=== PATIENT | female | born 1935 | race Caucasian/White ===

== ENCOUNTER 2016-12-12 07:25 | Outpatient (CLI) | payer MEDICARE, OTHER | END 2016-12-12 07:26 | disposition home or self-care (01) | DX: I48.0 Paroxysmal atrial fibrillation (principal); I20.9 Angina pectoris, unspecified; E78.5 Hyperlipidemia, unspecified; I10 Essential (primary) hypertension ==

== ENCOUNTER 2017-03-26 12:59 | Outpatient (CLI) | payer MEDICARE, OTHER | END 2017-03-26 13:00 | disposition home or self-care (01) | LOC: DI 12:59 | PROVIDERS: ATTEND Family Medicine | DX: I48.0 Paroxysmal atrial fibrillation (principal); R01.1 Cardiac murmur, unspecified; I35.0 Nonrheumatic aortic (valve) stenosis; I51.7 Cardiomegaly | CPT/HCPCS: 93306 ==

== ENCOUNTER 2017-07-06 07:23 | Outpatient (CLI) | payer MEDICARE, OTHER ==
[2017-07-06 13:59] LABS: BASOPHILS % (AUTO) 0.6 %; EOSINOPHILS # (AUTO) 0.2 10^3/uL (0.0-0.7); EOSINOPHILS % (AUTO) 3.8 %; HCT - HEMATOCRIT 39.8 % (37.0-47.0); HGB - HEMOGLOBIN 13.5 g/dL (12.0-16.0); LYMPHOCYTES # (AUTO) 1.3 10^3/uL (1.5-3.5); LYMPHOCYTES % (AUTO) 28.3 %; MEAN CORPUSCULAR HEMOGLOBIN 33.2 pg (27.0-31.0); MEAN CORPUSCULAR HGB CONC 33.8 g/dL (32.0-36.0); MEAN CORPUSCULAR VOLUME 98.2 fL (81.0-99.0); MEAN PLATELET VOLUME 9.5 fL (7.9-10.8); MONOCYTES # (AUTO) 0.5 10^3/uL (0.0-1.0); MONOCYTES % (AUTO) 9.9 %; NEUTROPHILS # (AUTO) 2.6 10^3/uL (1.5-6.6); NEUTROPHILS % (AUTO) 57.4 %; RED BLOOD COUNT 4.06 10^6/uL (4.20-5.40); RED CELL DISTRIBUTION WIDTH 13.5 % (12.0-15.0); UNCORRECTED WHITE BLOOD COUNT 4.6 x10^3/uL; WHITE BLOOD COUNT 4.6 x10^3/uL (4.8-10.8)
[2017-07-06 14:15] LABS: ALBUMIN/GLOBULIN RATIO 1.5 (1.0-2.2); BILIRUBIN,TOTAL 0.9 mg/dL (0.2-1.0); BUN - BLOOD UREA NITROGEN 23 mg/dL (6-20); CALCIUM 9.8 mg/dL (8.5-10.3); CARBON DIOXIDE - CO2 34 mmol/L (21-32); CHLORIDE 101 mmol/L (101-111); CHOL/HDL RATIO 3.1 (<4.4); CHOLESTEROL 229 mg/dL; CREATININE 0.9 mg/dL (0.4-1.0); GFR - MDRD 60 (>89); GLUCOSE 109 mg/dL (70-100); HDL CHOLESTEROL 73 mg/dL; LDL/HDL RATIO 1.9 (<4.4); POTASSIUM 4.1 mmol/L (3.5-5.0); SODIUM 142 mmol/L (135-145); TOTAL PROTEIN 6.7 g/dL (6.7-8.2); TRIGLYCERIDES 79 mg/dL; VLDL CHOLESTEROL 16 mg/dL
== END 2017-07-06 07:24 | disposition home or self-care (01) ==
LOC: LAB.F 07:23
PROVIDERS: ATTEND Family Medicine
DX: I48.0 Paroxysmal atrial fibrillation (principal); I10 Essential (primary) hypertension; I35.0 Nonrheumatic aortic (valve) stenosis; E78.5 Hyperlipidemia, unspecified
CPT/HCPCS: 36415; 80053; 80061; 85025

== ENCOUNTER 2018-02-16 11:15 | Outpatient (CLI) | payer MEDICARE, OTHER | END 2018-02-16 11:16 | disposition home or self-care (01) | LOC: DI 11:15 | PROVIDERS: ATTEND Family Medicine | DX: I48.91 Unspecified atrial fibrillation (principal); I35.0 Nonrheumatic aortic (valve) stenosis | CPT/HCPCS: 93306 ==

== ENCOUNTER 2018-04-10 06:43 | Emergency (ER) | END 2018-04-10 08:45 | disposition home or self-care (01) | CPT/HCPCS: 71046; 99283; A9270 ==

== ENCOUNTER 2018-04-28 15:09 | Outpatient (CLI) | payer MEDICARE, OTHER ==
--- NOTE | 2018-04-28 15:46 | XRAY Report ---
Procedure Date: 04/28/2018 Accession Number: [id number] / [id number] Procedure: XR - Calcaneus RT CPT Code: FULL RESULT: EXAM: Calcaneus RT DATE: 04/28/2018 3:20 PM CLINICAL HISTORY: PAINFUL R HEEL ACHILLES NON-RESPONSIVE TO PT COMPARISON: None. TECHNIQUE: 2 views. FINDINGS: Bones: Plantar calcaneal spurring. Joints:Normal. No subluxations. Soft Tissues: Normal. No soft tissue swelling. IMPRESSION: Plantar calcaneal spurring. No evidence of fracture. RADIA
== END 2018-04-28 15:10 | disposition home or self-care (01) ==
LOC: DI 15:09
PROVIDERS: ATTEND Podiatrist
DX: M77.31 Calcaneal spur, right foot (principal)

== ENCOUNTER 2018-06-08 07:08 | Outpatient (CLI) | payer MEDICARE, OTHER ==
[2018-06-08 12:05] LABS: BASOPHILS % (AUTO) 0.3 %; EOSINOPHILS # (AUTO) 0.1 10^3/uL (0.0-0.7); EOSINOPHILS % (AUTO) 1.9 %; HGB - HEMOGLOBIN 13.3 g/dL (12.0-16.0); LYMPHOCYTES # (AUTO) 2.9 10^3/uL (1.5-3.5); MEAN CORPUSCULAR HEMOGLOBIN 33.7 pg (27.0-31.0); MEAN CORPUSCULAR HGB CONC 33.9 g/dL (32.0-36.0); MEAN CORPUSCULAR VOLUME 99.6 fL (81.0-99.0); MEAN PLATELET VOLUME 9.4 fL (7.9-10.8); MONOCYTES # (AUTO) 0.6 10^3/uL (0.0-1.0); MONOCYTES % (AUTO) 8.3 %; NEUTROPHILS # (AUTO) 3.3 10^3/uL (1.5-6.6); NEUTROPHILS % (AUTO) 47.5 %; PLT - PLATELET COUNT 239 10^3/uL (130-450); RED BLOOD COUNT 3.95 10^6/uL (4.20-5.40); RED CELL DISTRIBUTION WIDTH 13.5 % (12.0-15.0); WHITE BLOOD COUNT 6.9 x10^3/uL (4.8-10.8)
[2018-06-08 12:21] LABS: ALBUMIN 3.9 g/dL (3.2-5.5); ALBUMIN/GLOBULIN RATIO 1.3 (1.0-2.2); ALKALINE PHOSPHATASE 62 IU/L (42-121); ALT ALANINE AMINOTRANSFERASE 31 IU/L (10-60); AST ASPARTATE AMINOTRANSFERASE 26 IU/L (10-42); BILIRUBIN,TOTAL 0.9 mg/dL (0.2-1.0); BUN - BLOOD UREA NITROGEN 21 mg/dL (6-20); CALCIUM 9.7 mg/dL (8.5-10.3); CARBON DIOXIDE - CO2 33 mmol/L (21-32); CHLORIDE 101 mmol/L (101-111); CHOL/HDL RATIO 2.6 (<4.4); CHOLESTEROL 222 mg/dL; CREATININE 0.8 mg/dL (0.4-1.0); GFR - MDRD 69 (>89); GLUCOSE 89 mg/dL (70-100); HDL CHOLESTEROL 87 mg/dL; LDL CHOLESTEROL,CALCULATED 119 mg/dL; LDL/HDL RATIO 1.4 (<4.4); SODIUM 141 mmol/L (135-145); TOTAL PROTEIN 6.8 g/dL (6.7-8.2); VLDL CHOLESTEROL 16 mg/dL
== END 2018-06-08 07:09 | disposition home or self-care (01) ==
LOC: LAB.F 07:08
PROVIDERS: ATTEND Family Medicine
DX: I48.0 Paroxysmal atrial fibrillation (principal); E78.5 Hyperlipidemia, unspecified; I10 Essential (primary) hypertension
CPT/HCPCS: 36415; 80053; 80061; 83721; 85025

== ENCOUNTER 2018-06-26 10:11 | Outpatient (CLI) | payer MEDICARE, OTHER ==
--- NOTE | 2018-06-26 16:59 | XRAY Report ---
Reason: FOOT PAIN,LEFT Procedure Date: 06/26/2018 Accession Number: [id number] / [id number] Procedure: XR - Foot 3 View LT CPT Code: FULL RESULT: EXAM: LEFT FOOT RADIOGRAPHY EXAM DATE: 06/26/2018 10:39 AM. CLINICAL HISTORY: FOOT Pain, left. No apparent injury. Pain in mid foot over first and second metatarsal area. Recent increase in walking. Possible stress fracture. COMPARISON: None. TECHNIQUE: 3 views. FINDINGS: Bones: Normal. No fractures or bone lesions. Joints: Normal. No subluxations. Soft Tissues: Normal. No soft tissue swelling. IMPRESSION: Normal foot radiography. RADIA
--- NOTE | 2018-06-26 17:42 | XRAY Report ---
Reason: CHRONIC SINUSITIS Procedure Date: 06/26/2018 Accession Number: [id number] / [id number] Procedure: XR - Sinus Complete CPT Code: FULL RESULT: EXAM: SINUS RADIOGRAPHY EXAM DATE: 06/26/2018 10:39 AM. CLINICAL HISTORY: Chronic sinusitis. COMPARISONS: None. TECHNIQUE: 3 views. FINDINGS: Bones: Normal. No fractures or bone lesions. Sinuses: Increased opacity within a portion of the right frontal sinus could represent soft tissue thickening. No other opacities or air fluid levels. Mastoid Air Cells: Clear. Other: Normal. No soft tissue swelling. IMPRESSION: 1. Possible right frontal sinus soft tissue thickening. 2. Otherwise, no mert sinus opacities or fluid levels. RADIA
--- NOTE | 2018-06-27 13:25 | XRAY Report ---
Reason: COUGH Procedure Date: 06/26/2018 Accession Number: [id number] / [id number] Procedure: XR - Chest 2 View X-Ray CPT Code: 23965 FULL RESULT: EXAM: CHEST RADIOGRAPHY EXAM DATE: 06/26/2018 10:38 AM. CLINICAL HISTORY: Cough. COMPARISON: Chest 2 view 04/10/2018. TECHNIQUE: 2 views. FINDINGS: Lungs/Pleura: No new focal opacities evident. Stable linear opacities at the left lung base likely represent scarring versus atelectasis. No pleural effusion. No pneumothorax. Normal volumes. Mediastinum: Heart and mediastinal contours are stable. Other: Anterior wedge compression fractures of multiple thoracic vertebral bodies are stable. IMPRESSION: No acute cardiopulmonary abnormality. RADIA
== END 2018-06-26 10:12 | disposition home or self-care (01) ==
LOC: DI 10:11
PROVIDERS: ATTEND Internal Medicine
DX: J32.9 Chronic sinusitis, unspecified (principal); R05 Cough; M79.672 Pain in left foot
CPT/HCPCS: 70220; 71046

== ENCOUNTER 2018-08-18 13:07 | Outpatient (CLI) | payer MEDICARE, OTHER | END 2018-08-18 13:08 | disposition critical access hospital (66) | LOC: EMS 13:07 | PROVIDERS: ATTEND Surgery | DX: R42 Dizziness and giddiness (principal); R07.89 Other chest pain | CPT/HCPCS: A0425; A0427 ==

== ENCOUNTER 2018-08-18 13:35 | Emergency (ER) | payer MEDICARE, OTHER ==
--- NOTE | 2018-08-18 13:45 | ED Physician Documentation ---
PD HPI CHEST PAIN - Stated complaint Stated Complaint: AFIB - Chief complaint Chief Complaint: Cardiac - History obtained from History obtained from: Patient - History of Present Illness Timing - onset: How many hours ago (12), Last night (about 1 am) Timing - onset during: Sleep Timing - duration: Hours Timing - details: Abrupt onset, Still present Quality: Pressure Location: Substernal Radiation: No: Jaw, Back Associated symptoms: Feeling faint / dizzy, Palpitations. No: Shortness of air, Nausea, General Weakness, Cough Similar symptoms before: Diagnosis (atrial fib episodes, last one being early summer. These have been self-limited in the past.) Recently seen: Not recently seen Review of Systems Constitutional: denies: Fever, Chills, Myalgias Nose: denies: Rhinorrhea / runny nose, Congestion Throat: denies: Sore throat Cardiac: reports: Palpitations. denies: Pedal edema, Calf pain Respiratory: denies: Dyspnea, Cough GI: denies: Nausea, Vomiting, Diarrhea : denies: Dysuria Skin: denies: Rash Neurologic: denies: Focal weakness, Numbness, Near syncope, Headache PD PAST MEDICAL HISTORY - Past Medical History Past Medical History: Yes Cardiovascular: Hypertension, High cholesterol, Atrial fibrillation, Murmur Respiratory: None Neuro: None Endocrine/Autoimmune: None GI: GERD, Ulcers : None HEENT: Chronic sinusitis Psych: None Musculoskeletal: Osteoporosis Derm: None - Past Surgical History Past Surgical History: Yes HEENT: Tonsil/Adenoidectomy - Present Medications Home Medications: Ambulatory Orders Medication Instructions Recorded Confirmed Chlorthalidone 25 mg PO DAILY 12/08/13 04/17/15 Cholecalciferol (Vitamin D3) 5,000 unit PO 12/08/13 04/17/15 [Vitamin D] Losartan [Cozaar] 50 mg PO DAILY 12/08/13 07/22/16 Metoprolol Succinate [Toprol Xl] 50 mg PO BID 12/08/13 07/22/16 Pravastatin Sodium 40 mg PO DAILY 12/08/13 07/22/16 Rivaroxaban [Xarelto] 20 mg PO DAILY 07/22/16 07/22/16 Fluticasone [Flonase] 2 sprays SOHAIL DAILY PRN #1 bottle 04/10/18 - Allergies Allergies/Adverse Reactions: Allergies Allergy/AdvReac Type Severity Reaction Status Date / Time Penicillins Allergy Unknown Unknown Verified 08/18/18 13:41 - Social History Does the pt smoke?: No Smoking Status: Former smoker Does the pt drink ETOH?: Yes Does the pt have substance abuse?: No - Immunizations Immunizations are current?: Yes - POLST Patient has POLST: No PD ED PE NORMAL - Vitals Vital signs reviewed: Yes - General General: Alert and oriented X 3, No acute distress, Well developed/nourished - HEENT HEENT: Moist mucous membranes, Pharynx benign - Neck Neck: Supple, no meningeal sign, No adenopathy - Cardiac Cardiac: No murmur. No: RRR (fast and irregular) - Respiratory Respiratory: Clear bilaterally - Abdomen Abdomen: Soft, Non tender - Back Back: No CVA TTP - Derm Derm: Normal color, Warm and dry - Extremities Extremities: No tenderness to palpate, Normal ROM s pain, No edema, No calf tenderness / cord - Neuro Neuro: Alert and oriented X 3, No motor deficit, Normal speech Results - Vitals Vitals: Vital Signs - 24 hr 08/18/18 08/18/18 08/18/18 13:37 13:44 14:40 Temperature 36.4 C L Heart Rate 110 H 107 H 64 Respiratory 15 15 16 Rate Blood Pressure 115/86 H 134/60 H O2 Saturation 96 95 08/18/18 14:54 Temperature Heart Rate 60 Respiratory 16 Rate Blood Pressure 123/66 O2 Saturation 95 Oxygen O2 Source Room air - EKG (time done) 13:09 Rate: Rate (enter#) (109) Rhythm: Atrial flutter [place]: Normal QRS: Normal Ischemia: Normal ST segments. No: ST elevation c/w ischemia, ST depression Computer interpretation: Agree with computer 14:54 Rate: Rate (enter#) (61) Rhythm: NSR [place]: Normal Intervals: Normal [place] QRS: Normal Ischemia: Normal ST segments. No: ST elevation c/w ischemia, ST depression Compare to prior EKG: Changed from prior EKG (converted to NSR) - Labs Labs: Laboratory Tests 08/18/18 08/18/18 08/18/18 13:53 13:53 13:53 WBC 7.8 RBC 4.00 L Hgb 13.3 Hct 39.5 MCV 98.8 MCH 33.2 H MCHC 33.6 RDW 13.8 Plt Count 257 MPV 8.6 Neut # (Auto) 5.1 Lymph # (Auto) 1.6 [place] # (Auto) 0.9 Eos # (Auto) 0.2 Baso # (Auto) 0.1 Absolute Nucleated RBC 0.00 Nucleated RBC % 0.0 Sodium 137 Potassium 3.6 Chloride 96 L Carbon Dioxide 29 Anion Gap 12.0 BUN 30 H Creatinine 1.1 H Estimated GFR (MDRD) 48 L Glucose 113 H Calcium 9.1 Magnesium Total Bilirubin 0.9 AST 24 ALT 29 Alkaline Phosphatase 62 Troponin I 0.06 Total Protein 6.6 L Albumin 3.6 Globulin 3.0 Albumin/Globulin Ratio 1.2 Lipase 47 08/18/18 13:53 WBC RBC Hgb Hct MCV MCH MCHC RDW Plt Count MPV Neut # (Auto) Lymph # (Auto) [place] # (Auto) Eos # (Auto) Baso # (Auto) Absolute Nucleated RBC Nucleated RBC % Sodium Potassium Chloride Carbon Dioxide Anion Gap BUN Creatinine Estimated GFR (MDRD) Glucose Calcium Magnesium 2.0 Total Bilirubin AST ALT Alkaline Phosphatase Troponin I Total Protein Albumin Globulin Albumin/Globulin Ratio Lipase - Rads (name of study) chest Radiology: Prelim report reviewed (normal), EMP read contemporaneously PD MEDICAL DECISION MAKING - ED course Complexity details: reviewed results, re-evaluated patient (she converted prior to meds, Given Metoprolol dose IV to keep slow. Did not need antiarrhythmics here. ), considered differential, d/w patient, d/w renewable energy consultant (Tianna, Cardiology - no added meds at this times. to see him in office. ) Departure - Departure Disposition: 01 Home, Self Care Clinical Impression: Paroxysmal atrial fibrillation Condition: Stable Record reviewed to determine appropriate education?: Yes Instructions: ED Afib Follow-Up: Joe Seals MD [Primary Care Provider] - Ayan Wynn MD [Provider Admit Priv/Credential] - Comments: I talked with Dr. Wynn who would have you discontinue your usual medicines right now. Make an appointment with his office and he can talk to you about the pros and cons of antiarrhythmic medicines to try to prevent recurrences. He did not think he needed to be on one urgently.
[2018-08-18 14:04] LABS: BASOPHILS # (AUTO) 0.1 10^3/uL (0.0-0.1); BASOPHILS % (AUTO) 0.7 %; EOSINOPHILS # (AUTO) 0.2 10^3/uL (0.0-0.7); EOSINOPHILS % (AUTO) 2.7 %; HGB - HEMOGLOBIN 13.3 g/dL (12.0-16.0); LYMPHOCYTES # (AUTO) 1.6 10^3/uL (1.5-3.5); LYMPHOCYTES % (AUTO) 20.7 %; MEAN CORPUSCULAR HEMOGLOBIN 33.2 pg (27.0-31.0); MEAN CORPUSCULAR HGB CONC 33.6 g/dL (32.0-36.0); MEAN CORPUSCULAR VOLUME 98.8 fL (81.0-99.0); MEAN PLATELET VOLUME 8.6 fL (7.9-10.8); MONOCYTES # (AUTO) 0.9 10^3/uL (0.0-1.0); MONOCYTES % (AUTO) 11.3 %; NEUTROPHILS # (AUTO) 5.1 10^3/uL (1.5-6.6); NEUTROPHILS % (AUTO) 64.6 %; PLT - PLATELET COUNT 257 10^3/uL (130-450); RED CELL DISTRIBUTION WIDTH 13.8 % (12.0-15.0); WHITE BLOOD COUNT 7.8 x10^3/uL (4.8-10.8)
[2018-08-18 14:17] LABS: ALBUMIN 3.6 g/dL (3.2-5.5); ALBUMIN/GLOBULIN RATIO 1.2 (1.0-2.2); BILIRUBIN,TOTAL 0.9 mg/dL (0.2-1.0); CALCIUM 9.1 mg/dL (8.5-10.3); CREATININE 1.1 mg/dL (0.4-1.0); TOTAL PROTEIN 6.6 g/dL (6.7-8.2)
[2018-08-18] MEDS ORDERED: PROCAINAMIDE 1,000 MG in SODIUM CHLORIDE 0.9% 240 ML IV STA (14:22)
[2018-08-18] MEDS ORDERED: SODIUM CHLORIDE 0.9% 1,000 ML IV ONE (14:22)
[2018-08-18] MEDS ORDERED: METOPROLOL 5 MG/5 ML VIAL IVP STA (14:25)
--- NOTE | 2018-08-18 15:00 | XRAY Report ---
Reason: chest distcomfort, a-fib Procedure Date: 08/18/2018 Accession Number: [id number] / [id number] Procedure: XR - Chest 2 View X-Ray CPT Code: 19793 FULL RESULT: EXAM: CHEST RADIOGRAPHY. EXAM DATE: 08/18/2018 02:26 PM. CLINICAL HISTORY: Chest discomfort, atrial fibrillation. COMPARISON: Chest 2 view 06/26/2018 10:38 AM. TECHNIQUE: 2 views. FINDINGS: Lungs/Pleura: No focal opacities evident. No pleural effusion. No pneumothorax. Overexpanded. Mediastinum: Stable mild cardiomegaly. No tracheal shift. Other: Multiple old moderate compression fractures throughout the moderately kyphoscoliotic thoracic spine. Old right rib fractures. IMPRESSION: 1. Chronic lung disease. 2. Mild cardiomegaly. RADIA
[2018-08-18 17:03] VITALS: BP 134/74
== END 2018-08-18 17:03 | disposition home or self-care (01) ==
LOC: EDUNIT# → ED 13:35
DX: I48.0 Paroxysmal atrial fibrillation (principal); I10 Essential (primary) hypertension; Z79.01 Long term (current) use of anticoagulants; Z87.891 Personal history of nicotine dependence
CPT/HCPCS: 36415; 71046; 80053; 83690; 83735; 84484; 85025; 93005; 96361; 96374; 99283

== ENCOUNTER 2018-09-21 14:55 | Outpatient (CLI) | payer MEDICARE, OTHER ==
--- NOTE | 2018-09-22 10:32 | CT Report ---
Reason: CHRONIC SINUSITIS, POST NASAL DRIP Procedure Date: 09/21/2018 Accession Number: [id number] / [id number] Procedure: CT - Sinuses CPT Code: FULL RESULT: EXAM: CT SINUS EXAM DATE: 09/21/2018 03:51 PM. HISTORY: CHRONIC SINUSITIS, POST NASAL DRIP. COMPARISONS: None. TECHNIQUE: Routine multi-axial CT imaging performed through the sinuses. Iodinated IV contrast: None. Reconstructions: Multiplanar reformats. In accordance with CT protocol optimization, one or more of the following dose reduction techniques were utilized for this exam: automated exposure control, adjustment of mA and/or KV based on patient size, or use of iterative reconstructive technique. FINDINGS: RIGHT Frontal: Prominent mucosal thickening. Ethmoid: Extensive opacification. Maxillary: Prior posterior superior and anterior inferior maxillary antral windows. Mild mucosal thickening. Sphenoid: Mild inferior mucosal thickening. Drainage Pathways: Frontal recess and sphenoethmoidal recess are obstructed by mucosal thickening. LEFT Frontal: Moderate mucosal thickening. Ethmoid: Extensive opacification. Maxillary: Prior posterior superior and anterior inferior maxillary antral windows. Sphenoid: Mild to moderate mucosal thickening, more pronounced anteriorly. Drainage Pathways: Frontal recess and sphenoethmoidal recess are obstructed by mucosal thickening. Nasal Cavity: Normal. No mass or significant anatomic abnormality evident. Osseous Structures: Unremarkable. Orbits: Unremarkable. Other: Left greater than right temporomandibular joint degenerative changes. IMPRESSION: Patient has had remote sinus surgery with widely patent bilateral maxillary antral windows as detailed above. The frontal and sphenoethmoidal recesses are obstructed by presumed mucosal thickening. Extensive opacification of ethmoid air cells. Significant frontal sinus mucosal thickening. RADIA
== END 2018-09-21 14:56 | disposition home or self-care (01) ==
LOC: DI 14:55
PROVIDERS: ATTEND Otolaryngology
DX: J32.8 Other chronic sinusitis (principal); R09.82 Postnasal drip
CPT/HCPCS: 70486

== ENCOUNTER 2018-11-24 10:57 | Outpatient (CLI) | payer MEDICARE, OTHER ==
[2018-11-24] MEDS ORDERED: REGADENOSON 0.4 MG/5 ML SYRINGE IVP ONE ×2 (12:13→13:54)
--- NOTE | 2018-11-24 15:47 | CARDIAC PROCEDURE NOTE ---
DATE OF SERVICE: 11/24/2018 Physician: Flavia Murray MD, [facility] INDICATION: Atrial fibrillation. CARDIAC RISK FACTORS: Hypertension, elevated cholesterol, postmenopausal status. PROCEDURE: After signing informed consent, the patient underwent a Lexiscan pharmaceutical stress test with nuclear myocardial perfusion imaging. RESTING HEART RATE: 63. PEAK HEART RATE: 83. RESTING BLOOD PRESSURE: 164/72. PEAK BLOOD PRESSURE: BP dropped to 142/78 and then had normal recovery by 3 minutes. The patient underwent Lexiscan infusion per protocol. She had flushing and mild shortness of breath, no chest pain. RESTING EKG: Normal sinus rhythm, occasional PACs, left atrial enlargement, first-degree AV block. EKG AT PEAK: No new ST segment or T-wave changes. SUMMARY 1. Abnormal resting EKG. 2. No ischemic changes by EKG criteria on this pharmaceutical stress test. 3. Nuclear images reported separately. cc: Ayan Wynn M.D. TD: 11/24/2018 15:35 [email or web address]
--- NOTE | 2018-11-24 16:51 | Nuclear Medicine Report ---
Reason: 195 LB - LEXISCAN - AFIB Procedure Date: 11/24/2018 Accession Number: [id number] / [id number] Procedure: NM - Myocardial Perfusion STR/RST CPT Code: FULL RESULT: EXAM: SINGLE-ISOTOPE PHARMACOLOGICAL STRESS TEST WITH REGADENOSON. SINGLE-ISOTOPE AND ONE-DAY REST/STRESS MYOCARDIAL PERFUSION SCANS WITH TOMOGRAPHIC IMAGING, QUANTITATIVE ANALYSIS, WALL MOTION ANALYSIS AND CALCULATION OF EJECTION FRACTION. EXAM DATE: 11/24/2018 04:16 PM. CLINICAL HISTORY: Atrial fibrillation. COMPARISON: None available. TECHNIQUE: After the intravenous administration of 10.7 mCi of Tc-99m sestamibi, a rest myocardial perfusion scan was done with tomography. Motion correction was applied when appropriate. After an appropriate delay, pharmacological stress was performed with the infusion of 0.4 mg regadenoson per protocol. According to protocol, 42.2 mCi of Tc-99m sestamibi was injected for stress myocardial perfusion scan. Motion correction was applied when appropriate. Gated tomographic images were obtained for wall motion analysis and computation of left ventricular ejection fraction. FINDINGS: On visual analysis, mildly decreased activity in the anteroseptal wall which appears slightly greater on the stress images compared to the rest images. There is mildly decreased activity in the inferolateral wall which appears similar between rest and stress. Computer analysis. Summed stress score 8 Summed rest score 4 Summed difference score 4 Wall motion analysis demonstrates no focal wall motion abnormality. The left ventricular end-diastolic volume is 64 cc. The left ventricular end-systolic volume is 3 cc. The left ventricular ejection fraction is calculated to be 95%. IMPRESSION: 1. On visual analysis, there is mildly decreased activity in the anteroseptal wall which appears slightly more severe on the stress images compared to rest images. Mildly decreased activity in the inferolateral wall appears similar between rest and stress. 2. Left ventricular ejection fraction of >65%. 3. Normal segmental and global wall motion. 4. Normal left ventricular cavity size, no change with stress. 5. Based on computer analysis, mildly abnormal study with mild ischemia. RADIA
== END 2018-11-24 10:58 | disposition home or self-care (01) ==
LOC: DI 10:57
PROVIDERS: ATTEND Internal Medicine Cardiovascular Disease
DX: I48.91 Unspecified atrial fibrillation (principal); R94.31 Abnormal electrocardiogram [ECG] [EKG]
CPT/HCPCS: 78452; 93017; A9500; J2785

== ENCOUNTER 2019-03-23 07:12 | Outpatient (CLI) | payer MEDICARE, OTHER ==
[2019-03-23 10:15] LABS: CALCIUM 9.6 mg/dL (8.5-10.3); CREATININE 0.8 mg/dL (0.4-1.0)
== END 2019-03-23 07:13 | disposition home or self-care (01) ==
LOC: LAB.F 07:12
PROVIDERS: ATTEND Internal Medicine Cardiovascular Disease
DX: I48.0 Paroxysmal atrial fibrillation (principal)
CPT/HCPCS: 36415; 80048

== ENCOUNTER 2019-08-03 12:20 | Outpatient (CLI) | payer MEDICARE, OTHER | END 2019-08-03 12:21 | disposition critical access hospital (66) | LOC: EMS 12:20 | PROVIDERS: ATTEND Surgery | DX: R09.89 Other specified symptoms and signs involving the circulatory and respiratory systems (principal) | CPT/HCPCS: A0425; A0429 ==

== ENCOUNTER 2019-08-03 12:45 | Emergency (ER) | payer MEDICARE, OTHER ==
--- NOTE | 2019-08-03 13:10 | ED Physician Documentation ---
PD HPI CHEST PAIN - Stated complaint Stated Complaint: AFIB - Chief complaint Chief Complaint: Cardiac - History obtained from History obtained from: Patient - History of Present Illness Timing - onset: Last night (83-year-old woman with paroxysmal atrial fibrillation, maintained on Xarelto and metoprolol. She felt it started up last night. Her symptoms are neck pressure anteriorly and palpitations. She denies shortness of breath or pedal edema. Last time she was in atrial fibrillation was about January. She has never needed electrical cardioversion.) Review of Systems Constitutional: reports: Fatigue. denies: Fever, Chills Cardiac: reports: Palpitations. denies: Chest pain / pressure, Calf pain Respiratory: denies: Dyspnea, Cough PD PAST MEDICAL HISTORY - Past Medical History Cardiovascular: Hypertension, High cholesterol, Atrial fibrillation, Murmur Respiratory: None Neuro: None Endocrine/Autoimmune: None GI: GERD, Ulcers : None HEENT: Chronic sinusitis Psych: None Musculoskeletal: Osteoporosis Derm: None - Past Surgical History Past Surgical History: Yes HEENT: Tonsil/Adenoidectomy - Present Medications Home Medications: Ambulatory Orders Medication Instructions Recorded Confirmed Chlorthalidone 25 mg PO DAILY 12/08/13 04/17/15 Cholecalciferol (Vitamin D3) 5,000 unit PO 12/08/13 04/17/15 [Vitamin D] Losartan [Cozaar] 50 mg PO DAILY 12/08/13 07/22/16 Metoprolol Succinate [Toprol Xl] 50 mg PO BID 12/08/13 07/22/16 Pravastatin Sodium 40 mg PO DAILY 12/08/13 07/22/16 Rivaroxaban [Xarelto] 20 mg PO DAILY 07/22/16 07/22/16 Fluticasone [Flonase] 2 sprays SOHAIL DAILY PRN #1 bottle 04/10/18 - Allergies Allergies/Adverse Reactions: Allergies Allergy/AdvReac Type Severity Reaction Status Date / Time Penicillins Allergy Unknown Unknown Verified 08/03/19 12:55 - Social History Does the pt smoke?: No Smoking Status: Former smoker Does the pt drink ETOH?: Yes Does the pt have substance abuse?: No - Immunizations Immunizations are current?: Yes - POLST Patient has POLST: No PD ED PE NORMAL - Vitals Vital signs reviewed: Yes - General General: Alert and oriented X 3, No acute distress - Neck Neck: Supple, no meningeal sign, No bony TTP - Cardiac Cardiac: Other (Irregularly irregular without murmur) - Respiratory Respiratory: No respiratory distress, Clear bilaterally - Abdomen Abdomen: Non tender - Extremities Extremities: No edema, No calf tenderness / cord - Neuro Neuro: Alert and oriented X 3, Normal speech Results - Vitals Vitals: Vital Signs - 24 hr 08/03/19 08/03/19 08/03/19 12:53 13:01 13:25 Temperature 36.6 C Heart Rate 114 H 94 104 H Respiratory 20 14 Rate Blood Pressure 106/80 106/80 99/77 O2 Saturation 90 L 94 08/03/19 08/03/19 08/03/19 13:26 13:27 13:34 Temperature Heart Rate 104 H 105 H 103 H Respiratory 16 Rate Blood Pressure 99/77 103/75 111/77 O2 Saturation 97 08/03/19 08/03/19 08/03/19 13:45 14:00 14:05 Temperature Heart Rate 102 H 106 H 102 H Respiratory 16 16 16 Rate Blood Pressure 102/57 L 112/70 98/73 O2 Saturation 97 97 96 08/03/19 08/03/19 08/03/19 14:10 14:15 14:55 Temperature Heart Rate 90 90 63 Respiratory 16 16 16 Rate Blood Pressure 121/60 116/76 118/62 O2 Saturation 96 99 97 08/03/19 08/03/19 15:00 15:18 Temperature Heart Rate 98 61 Respiratory 16 Rate Blood Pressure 127/68 120/76 O2 Saturation 97 Oxygen O2 Source Room air - EKG (time done) 1253 Rate: Rate (enter#) (125) Rhythm: Atrial fibrillation [place]: Normal QRS: Normal Ischemia: Q waves (III/F, not 2). No: ST elevation c/w ischemia, ST depression 1508 Rate: Rate (enter#) (59) Rhythm: NSR Intervals: Prolonged [place] QRS: Normal Ischemia: Non specific changes Computer interpretation: Agree with computer - Labs Labs: Laboratory Tests 08/03/19 08/03/19 08/03/19 13:17 13:17 13:17 WBC 6.0 RBC 4.08 L Hgb 13.2 Hct 41.3 MCV 101.2 H MCH 32.4 H MCHC 32.0 RDW 13.0 Plt Count 242 MPV 10.4 Neut # (Auto) 3.9 Lymph # (Auto) 1.4 L Daniels # (Auto) 0.6 Eos # (Auto) 0.1 Baso # (Auto) 0.0 Absolute Nucleated RBC 0.00 Nucleated RBC % 0.0 Sodium 141 Potassium 3.7 Chloride 101 Carbon Dioxide 30 Anion Gap 10.0 BUN 22 H Creatinine 0.9 Estimated GFR (MDRD) 60 L Glucose 112 H Calcium 9.7 Total Bilirubin 0.7 AST 26 ALT 26 Alkaline Phosphatase 63 Total Protein 6.8 Albumin 3.9 Globulin 2.9 Albumin/Globulin Ratio 1.3 Lipase 29 TSH 1.31 PD MEDICAL DECISION MAKING - ED course ED course: 83-year-old woman presents with symptomatic rapid atrial fibrillation since last night. She is anticoagulated. She was rate controlled with a dose of IV metoprolol and subsequently converted during a procainamide drip. Departure - Departure Disposition: 01 Home, Self Care Clinical Impression: Atrial fibrillation Condition: Good Record reviewed to determine appropriate education?: Yes Instructions: Atrial Fibrillation Dc Comments: Call your doctor to arrange a follow-up appointment, make the next available appointment. In the interim, return anytime if worse or if new symptoms develop.
[2019-08-03] MEDS: METOPROLOL 5 MG/5 ML VIAL IVP STA ×2 (13:26→14:00)
[2019-08-03 13:30] LABS: BASOPHILS % (AUTO) 0.7 %; EOSINOPHILS # (AUTO) 0.1 10^3/uL (0.0-0.7); EOSINOPHILS % (AUTO) 1.7 %; HGB - HEMOGLOBIN 13.2 g/dL (12.0-16.0); LYMPHOCYTES # (AUTO) 1.4 10^3/uL (1.5-3.5); LYMPHOCYTES % (AUTO) 23.8 %; MEAN CORPUSCULAR HEMOGLOBIN 32.4 pg (27.0-31.0); MEAN CORPUSCULAR VOLUME 101.2 fL (81.0-99.0); MEAN PLATELET VOLUME 10.4 fL (7.9-10.8); MONOCYTES # (AUTO) 0.6 10^3/uL (0.0-1.0); MONOCYTES % (AUTO) 9.1 %; NEUTROPHILS # (AUTO) 3.9 10^3/uL (1.5-6.6); NEUTROPHILS % (AUTO) 64.2 %; PLT - PLATELET COUNT 242 10^3/uL (130-450); RED BLOOD COUNT 4.08 10^6/uL (4.20-5.40)
[2019-08-03 13:43] LABS: ALBUMIN 3.9 g/dL (3.2-5.5); ALBUMIN/GLOBULIN RATIO 1.3 (1.0-2.2); BILIRUBIN,TOTAL 0.7 mg/dL (0.2-1.0); CALCIUM 9.7 mg/dL (8.5-10.3); CREATININE 0.9 mg/dL (0.4-1.0); TOTAL PROTEIN 6.8 g/dL (6.7-8.2)
[2019-08-03] MEDS ORDERED: SODIUM CHLORIDE 0.9% 500 ML IV ONE (13:47)
[2019-08-03] MEDS ORDERED: PROCAINAMIDE 1,000 MG in SODIUM CHLORIDE 0.9% 240 ML IV STA (14:02)
[2019-08-03 15:18] VITALS: BP 120/76
== END 2019-08-03 15:38 | disposition home or self-care (01) ==
LOC: EDUNIT# → ED 12:45
DX: I48.0 Paroxysmal atrial fibrillation (principal); Z79.01 Long term (current) use of anticoagulants; I10 Essential (primary) hypertension; Z87.891 Personal history of nicotine dependence
CPT/HCPCS: 36415; 80053; 83690; 84443; 85025; 93005; 96361; 96365; 96375; 99283; 99285; J2690

== ENCOUNTER 2019-08-26 13:37 | Outpatient (CLI) | payer MEDICARE, OTHER | END 2019-08-26 13:38 | disposition short-term general hospital (02) | LOC: EMS 13:37 | PROVIDERS: ATTEND Surgery | DX: R42 Dizziness and giddiness (principal); R09.89 Other specified symptoms and signs involving the circulatory and respiratory systems | CPT/HCPCS: A0425; A0427 ==

== ENCOUNTER 2019-12-19 08:23 | Outpatient (CLI) | payer MEDICARE, OTHER | END 2019-12-19 08:24 | disposition home or self-care (01) | LOC: RT 08:23 | PROVIDERS: ATTEND Internal Medicine Cardiovascular Disease | DX: I48.91 Unspecified atrial fibrillation (principal) | CPT/HCPCS: 93005 ==

== ENCOUNTER 2020-04-10 09:09 | Outpatient (CLI) | payer MEDICARE, OTHER | END 2020-04-10 09:10 | disposition home or self-care (01) | LOC: RT 09:09 | PROVIDERS: ATTEND Family Medicine | DX: I48.0 Paroxysmal atrial fibrillation (principal) | CPT/HCPCS: 93005 ==

== ENCOUNTER 2020-07-12 08:00 | Outpatient (CLI) | payer MEDICARE, OTHER | END 2020-07-12 08:01 | disposition home or self-care (01) | LOC: LAB 08:00 | PROVIDERS: ATTEND Internal Medicine Cardiovascular Disease | DX: I95.1 Orthostatic hypotension (principal) | CPT/HCPCS: 36415; 82533 ==

== ENCOUNTER 2020-10-25 12:52 | Emergency (ER) | payer MEDICARE, OTHER ==
[2020-10-25 13:46] LABS: BASOPHILS # (AUTO) 0.1 10^3/uL (0.0-0.1); BASOPHILS % (AUTO) 0.8 %; EOSINOPHILS # (AUTO) 0.2 10^3/uL (0.0-0.7); EOSINOPHILS % (AUTO) 3.2 %; HGB - HEMOGLOBIN 11.9 g/dL (12.0-16.0); LYMPHOCYTES # (AUTO) 1.1 10^3/uL (1.5-3.5); LYMPHOCYTES % (AUTO) 19.1 %; MEAN CORPUSCULAR HEMOGLOBIN 26.7 pg (27.0-31.0); MEAN CORPUSCULAR HGB CONC 29.8 g/dL (32.0-36.0); MEAN CORPUSCULAR VOLUME 89.9 fL (81.0-99.0); MEAN PLATELET VOLUME 10.2 fL (7.9-10.8); MONOCYTES # (AUTO) 0.6 10^3/uL (0.0-1.0); MONOCYTES % (AUTO) 10.8 %; NEUTROPHILS # (AUTO) 3.9 10^3/uL (1.5-6.6); NEUTROPHILS % (AUTO) 65.4 %; PLT - PLATELET COUNT 287 10^3/uL (130-450); RED BLOOD COUNT 4.45 10^6/uL (4.20-5.40); RED CELL DISTRIBUTION WIDTH 24.6 % (12.0-15.0); WHITE BLOOD COUNT 5.9 x10^3/uL (4.8-10.8)
[2020-10-25 13:46] LABS: BILIRUBIN,URINE NEGATIVE (NEGATIVE); GLUCOSE, URINE (UA) NEGATIVE (NEGATIVE); KETONES,URINE (UA) NEGATIVE (NEGATIVE); LEUKOCYTE ESTERASE, URINE NEGATIVE (NEGATIVE); NITRITE,URINE NEGATIVE (NEGATIVE); OCCULT BLOOD,URINE NEGATIVE (NEGATIVE); PH,URINE 7.5 PH (5.0-7.5); PROTEIN,URINE TRACE mg/dL (NEGATIVE); UROBILINOGEN,URINE 0.2 (NORMAL) E.U./dL (NORMAL)
[2020-10-25 13:49] LABS: CLARITY,URINE CLEAR (CLEAR)
--- NOTE | 2020-10-25 13:53 | ED Physician Documentation ---
History of Present Illness - Stated complaint Stated Complaint: WEAKNESS - Chief complaint Chief Complaint: General - History obtained from History obtained from: Patient - Additonal information Additional information: Patient comes emergency department for chief complaint of feeling generally weak and jittery today. Patient states that she has been struggling with anemia for the last 6 months and that she has had extensive work-up and nobody really knows why she is anemic. Patient states she has had endoscopy and colonoscopy, plus the pill camera and they have not found any bleeding internally. The patient denies any fevers or chills. No dysuria. No abdominal pain or back pain. No cough, chest pain, or shortness of breath. Patient has not been vomiting or having diarrhea. She does not feel ill in any other way. No history of thyroid disorder. No other complaints at this time. The patient states she is on medication for hypertension but has no history of coronary artery disease. She does have chronic A. fib, which is generally rate controlled. No other complaints at this time. No history of diabetes. Review of Systems Ten Systems: 10 systems reviewed and negative Constitutional: reports: Other (Generalized weakness.) Eyes: reports: Reviewed and negative Ears: reports: Reviewed and negative Nose: reports: Reviewed and negative Throat: reports: Reviewed and negative Cardiac: reports: Reviewed and negative Respiratory: reports: Reviewed and negative GI: reports: Reviewed and negative : reports: Reviewed and negative Skin: reports: Reviewed and negative Musculoskeletal: reports: Reviewed and negative Neurologic: reports: Generalized weakness Psychiatric: reports: Reviewed and negative Endocrine: reports: Reviewed and negative Immunocompromised: reports: Reviewed and negative PD PAST MEDICAL HISTORY - Past Medical History Cardiovascular: Hypertension, High cholesterol, Atrial fibrillation, Murmur Respiratory: None Neuro: None Endocrine/Autoimmune: None GI: GERD, Ulcers : None HEENT: Chronic sinusitis Psych: None Musculoskeletal: Osteoporosis Derm: None - Past Surgical History Past Surgical History: Yes HEENT: Tonsil/Adenoidectomy - Present Medications Home Medications: Ambulatory Orders Medication Instructions Recorded Confirmed Cholecalciferol (Vitamin D3) 5,000 unit PO 12/08/13 04/17/15 [Vitamin D] Losartan [Cozaar] 50 mg PO DAILY 12/08/13 10/25/20 Metoprolol Succinate [Toprol Xl] 50 mg PO DAILY 12/08/13 10/25/20 Pravastatin Sodium 40 mg PO DAILY 12/08/13 10/25/20 amLODIPine [Norvasc] 5 mg PO DAILY 10/25/20 10/25/20 - Allergies Allergies/Adverse Reactions: Allergies Allergy/AdvReac Type Severity Reaction Status Date / Time Penicillins Allergy Unknown Unknown Verified 10/25/20 12:58 flecainide Allergy Dizziness Verified 10/25/20 13:54 - Social History Does the pt smoke?: No Smoking Status: Never smoker Does the pt drink ETOH?: Yes Does the pt have substance abuse?: No - Immunizations Immunizations are current?: Yes - POLST Patient has POLST: No PD ED PE NORMAL - Vitals Vital signs reviewed: Yes - General General: Alert and oriented X 3, No acute distress - HEENT HEENT: Atraumatic, PERRL, EOMI, Moist mucous membranes - Neck Neck: Supple, no meningeal sign - Cardiac Cardiac: RRR, No murmur, Strong equal pulses - Respiratory Respiratory: No respiratory distress, Clear bilaterally - Abdomen Abdomen: Soft, Non tender, Non distended - Derm Derm: Normal color, Warm and dry, No rash - Extremities Extremities: No deformity, No calf tenderness / cord, Other (Trace lower leg pi tting edema bilaterally.) - Neuro Neuro: Alert and oriented X 3, supervisor beet end 2-12 intact, Normal speech, Other (No gross motor or sensory deficits) - Psych Psych: Normal mood, Normal affect Results - Vitals Vitals: Vital Signs - 24 hr 10/25/20 10/25/20 10/25/20 12:59 13:46 14:31 Temperature 36.5 C 36.8 C Heart Rate 80 83 67 Respiratory 16 18 18 Rate Blood Pressure 186/80 H 146/75 H 127/73 O2 Saturation 96 98 97 Oxygen O2 Source Room air - Labs Labs: Laboratory Tests 10/25/20 10/25/20 10/25/20 13:20 13:30 13:30 WBC 5.9 RBC 4.45 Hgb 11.9 L Hct 40.0 MCV 89.9 MCH 26.7 L MCHC 29.8 L RDW 24.6 H Plt Count 287 MPV 10.2 Neut # (Auto) 3.9 Lymph # (Auto) 1.1 L [place] # (Auto) 0.6 Eos # (Auto) 0.2 Baso # (Auto) 0.1 Absolute Nucleated RBC 0.00 Nucleated RBC % 0.0 Manual Slide Review Indicated Platelet Estimate NORMAL (130-450,000) Platelet Morphology NORMAL APPEARANCE RBC Morph Micro Appear 2+ ANISOCYTOSIS Sodium 143 Potassium 3.8 Chloride 101 Carbon Dioxide 27 Anion Gap 15.0 H BUN 17 Creatinine 0.8 Estimated GFR (MDRD) 68 L Glucose 113 H Calcium 10.1 Total Bilirubin 0.7 AST 42 ALT 35 Alkaline Phosphatase 68 Total Protein 7.4 Albumin 4.4 Globulin 3.0 Albumin/Globulin Ratio 1.5 Lipase 30 Urine Color YELLOW Urine Clarity CLEAR Urine pH 7.5 Ur Specific [place] 1.015 Urine Protein TRACE Urine Glucose (UA) NEGATIVE Urine Ketones NEGATIVE Urine Occult Blood NEGATIVE Urine Nitrite NEGATIVE Urine Bilirubin NEGATIVE Urine Urobilinogen 0.2 (NORMAL) Ur Leukocyte Esterase NEGATIVE Ur Microscopic Review NOT INDICATED Urine Culture Comments NOT INDICATED PD MEDICAL DECISION MAKING - ED course Complexity details: reviewed results, re-evaluated patient, considered differential, d/w patient ED course: The patient overall looks very good, and did not appear to have an acutely emergent condition. She was evaluated with labs and urinalysis. This did show a hemoglobin nearly normal at 11.9 and a normal hematocrit of 40. Her blood glucose was slightly elevated at 113. Her urinalysis was negative. I discussed with the patient that I do not find any evidence of a emergent condition today. The patient does not have any other symptoms besides this sense of being "jittery" and mildly generally weak, though generalized weakness is not appreciated whatsoever on exam. The patient is noted to ambulate and get around briskly and without difficulty. She is bright and alert. The patient at this point stable for discharge home. We have discussed home management of the symptoms and the need for follow-up. The patient has recently seen her primary care physician and should follow-up with her PCP again for further concerns. We have discussed the usual indications for return. Departure - Departure Disposition: 01 Home, Self Care Clinical Impression: Generalized weakness Condition: Stable Instructions: ED Weakness UKO Comments: Your labs, overall, look good. Your hemoglobin, one of the measures that we look at to see if you are anemic, is 11.9. The normal range is 12.0-16.0. Your hematocrit, the other measure we look at, is 40, which is within normal limits. As such, you do not have significant anemia at this time. Your glucose, or blood sugar, is 113 which is also slightly elevated. The upper end of the normal range should be 100. This does not mean that you have diabetes, but you should have a sugar rechecked with your doctor from time to time. It is not clear why you have felt weak and jittery today. It is possible that you could be fighting off one of the many viral illnesses that go around this time of year. It could also be that you need to get more rest or drink more water, or that you are just having an off day. There is no evidence of an emergent condition today. Although you have A. fib, your heart rate is normal, and your blood pressure is minimally elevated. Please call and make an appointment with your primary doctor to follow-up regarding your concerns. Discharge Date/Time: 10/25/20 14:40
[2020-10-25 14:03] LABS: ALBUMIN 4.4 g/dL (3.2-5.5); ALBUMIN/GLOBULIN RATIO 1.5 (1.0-2.2); BILIRUBIN,TOTAL 0.7 mg/dL (0.2-1.0); CALCIUM 10.1 mg/dL (8.5-10.3); CREATININE 0.8 mg/dL (0.4-1.0); TOTAL PROTEIN 7.4 g/dL (6.7-8.2)
[2020-10-25 14:11] LABS: PLATELET ESTIMATE, MANUAL NORMAL (130-450,000) (NORMAL); PLATELET MORPHOLOGY NORMAL APPEARANCE (NORMAL)
[2020-10-25 14:12] LABS: RBC MORPHOLOGY (MULTIPLE) 2+ ANISOCYTOSIS (NORMAL)
[2020-10-25 14:31] VITALS: BP 127/73
--- OUTSIDE RECORDS SUMMARY | 2020-10-31 01:12 | EXTERNAL MEDICAL SUMMARY RPT | Continuity of Care Document ---
:1935 Demographics Phone Unavailable Preferred Language Unknown Marital Status Unknown Mu-Ism Affiliation Unknown Race Unknown Ethnic Group Unknown Author Organization [facility] Address [address] [phone] Phone Care Team Providers Name Role Phone MATHEUS Unavailable Unavailable Allergies date description facility CIPROFLOXACIN [facility] STRAWB[facility]Y [facility] ADHESIVE TAPE [facility] [id number] [facility] Penicillins [facility] Results Social History date description facility [id number]
== END 2020-10-25 14:40 | disposition home or self-care (01) ==
LOC: ED 12:52
DX: R53.1 Weakness (principal); R73.9 Hyperglycemia, unspecified; I10 Essential (primary) hypertension; I48.20 Chronic atrial fibrillation, unspecified
CPT/HCPCS: 36415; 80053; 81001; 81003; 83690; 85025; 87086; 99283

== ENCOUNTER 2020-11-27 08:00 | Outpatient (CLI) | payer MEDICARE, OTHER ==
[2020-11-27 10:29] LABS: HGB - HEMOGLOBIN 12.1 g/dL (12.0-16.0); MEAN CORPUSCULAR HEMOGLOBIN 28.6 pg (27.0-31.0); MEAN CORPUSCULAR HGB CONC 29.8 g/dL (32.0-36.0); MEAN PLATELET VOLUME 10.8 fL (7.9-10.8); RED BLOOD COUNT 4.23 10^6/uL (4.20-5.40); RED CELL DISTRIBUTION WIDTH 23.9 % (12.0-15.0); WHITE BLOOD COUNT 4.9 x10^3/uL (4.8-10.8)
== END 2020-11-27 23:59 | disposition home or self-care (01) ==
LOC: LAB 08:00
PROVIDERS: ATTEND Internal Medicine Cardiovascular Disease
DX: D50.0 Iron deficiency anemia secondary to blood loss (chronic) (principal)
CPT/HCPCS: 36415; 85027

== ENCOUNTER 2021-05-26 17:11 | Emergency (ER) | payer MEDICARE, OTHER ==
--- NOTE | 2021-05-26 18:45 | ED Physician Documentation ---
History of Present Illness - Stated complaint Stated Complaint: HIGH BP - Chief complaint Chief Complaint: Cardiac - History obtained from History obtained from: Patient - History of Present Illness Timing: Today Pain level max: 0 Pain level now: 0 - Additonal information Additional information: 85-year-old female states that she noticed her blood pressure was higher than usual today. She is asymptomatic. Recently taken off amlodipine and started on Lasix. Took Lasix for the first time today. No headache. No chest pain. No shortness of breath. No abdominal pain. No vision changes. Review of Systems Ten Systems: 10 systems reviewed and negative Constitutional: denies: Fever, Chills Nose: denies: Rhinorrhea / runny nose, Congestion Throat: denies: Sore throat Cardiac: denies: Chest pain / pressure, Palpitations Respiratory: denies: Cough Skin: denies: Rash Musculoskeletal: denies: Neck pain, Back pain Neurologic: denies: Focal weakness, Numbness, Headache PD PAST MEDICAL HISTORY - Past Medical History Cardiovascular: Hypertension, High cholesterol, Atrial fibrillation, Murmur Respiratory: None Neuro: None Endocrine/Autoimmune: None GI: GERD, Ulcers : None HEENT: Chronic sinusitis Psych: None Musculoskeletal: Osteoporosis Derm: None - Past Surgical History Past Surgical History: Yes HEENT: Tonsil/Adenoidectomy - Present Medications Home Medications: Ambulatory Orders Medication Instructions Recorded Confirmed Cholecalciferol (Vitamin D3) 5,000 unit PO 12/08/13 04/17/15 [Vitamin D] Losartan [Cozaar] 50 mg PO DAILY 12/08/13 10/25/20 Metoprolol Succinate [Toprol Xl] 50 mg PO DAILY 12/08/13 10/25/20 Pravastatin Sodium 40 mg PO DAILY 12/08/13 10/25/20 - Allergies Allergies/Adverse Reactions: Allergies Allergy/AdvReac Type Severity Reaction Status Date / Time Penicillins Allergy Unknown Unknown Verified 05/26/21 17:21 flecainide Allergy Dizziness Verified 05/26/21 17:21 - Social History Does the pt smoke?: No Smoking Status: Never smoker Does the pt drink ETOH?: Yes Does the pt have substance abuse?: No - Immunizations Immunizations are current?: Yes - POLST Patient has POLST: No PD ED PE NORMAL - Vitals Vital signs reviewed: Yes - General General: Alert and oriented X 3, No acute distress - HEENT HEENT: Moist mucous membranes - Neck Neck: Supple, no meningeal sign - Cardiac Cardiac: RRR - Respiratory Respiratory: No respiratory distress, Clear bilaterally - Abdomen Abdomen: Soft, Non tender, Non distended - Derm Derm: Warm and dry - Extremities Extremities: No edema, No calf tenderness / cord - Neuro Neuro: Alert and oriented X 3 - Psych Psych: Normal mood, Normal affect Results - Vitals Vitals: Vital Signs - 24 hr 05/26/21 05/26/21 05/26/21 17:12 17:59 18:06 Temperature 36.9 C Heart Rate 66 56 L Respiratory 16 17 Rate Blood Pressure 229/88 H 202/95 H 193/95 H O2 Saturation 98 95 05/26/21 18:49 Temperature Heart Rate 61 Respiratory 17 Rate Blood Pressure 196/88 H O2 Saturation 95 Oxygen O2 Source Room air PD MEDICAL DECISION MAKING - ED course Complexity details: reviewed old records (Blood pressure was 186/80 on 10/25/2020 and 176/88 on 04/10/2018), re-evaluated patient, considered differential, d/w patient ED course: Patient is an 85-year-old female with Asymptomatic hypertension. Her blood pressure did decrease from 230 down to 180 in the emergency department. She does not want any medication or treatment here. Normal neurological exam. No focal neuro deficits. No chest pain, shortness of breath, vision changes. Asymptomatic hypertension. She will follow up with her doctor regarding her recent medication changes. Patient has had systolic blood pressures up into the 180s in the past on review of her chart. Patient counseled regarding signs and symptoms for which I believe and urgent re-evaluation would be necessary. Patient with good understanding of and agreement to plan and is comfortable going home at this time This document was made in part using voice recognition software. While efforts are made to proofread this document, sound alike and grammatical errors may occur. Departure - Departure Disposition: 01 Home, Self Care Clinical Impression: Hypertension Qualifiers: Hypertension type: unspecified Qualified Code(s): I10 - Essential (primary) hypertension Condition: Good Instructions: ED HTN Established Follow-Up: ARAMIS JARVIS MD [Primary Care Provider] - Within 1 week Comments: Please keep track of your blood pressures at home and call your doctor with the results tomorrow to see if they would like to adjust your medications. Return if you worsen, develop headaches, chest pain shortness of breath or other new symptoms. Discharge Date/Time: 05/26/21 18:50
[2021-05-26 18:50] VITALS: BP 196/88
== END 2021-05-26 18:50 | disposition home or self-care (01) ==
LOC: ED 17:11
DX: I10 Essential (primary) hypertension (principal)
CPT/HCPCS: 99281; 99284

== ENCOUNTER 2021-05-29 07:43 | Outpatient (CLI) | payer MEDICARE, OTHER | END 2021-05-29 07:44 | disposition home or self-care (01) | LOC: DI 07:43 | PROVIDERS: ATTEND Internal Medicine Cardiovascular Disease | DX: I11.9 Hypertensive heart disease without heart failure (principal) | CPT/HCPCS: 93306 ==

== ENCOUNTER 2021-07-11 10:45 | Emergency (ER) | payer MEDICARE, OTHER ==
--- NOTE | 2021-07-11 11:24 | ED Physician Documentation ---
History of Present Illness - Stated complaint Stated Complaint: AFIB - Chief complaint Chief Complaint: Cardiac - History obtained from History obtained from: Patient - Additonal information Additional information: 85-year-old woman with history of paroxysmal atrial fibrillation, last episode was about a year ago. She is not anticoagulated because of a history of blood loss anemia of unknown source despite having EGD, colonoscopy, and PillCam without causation. She has been in symptomatic A. fib for the last 5 days, feeling like her heart is skipping and flopping. There is no associated chest pain or trouble breathing. Her welding estimator is Ayan Wynn in [place]. Review of Systems Ten Systems: 10 systems reviewed and negative Constitutional: reports: Fatigue. denies: Fever, Chills Cardiac: reports: Palpitations. denies: Chest pain / pressure Respiratory: denies: Dyspnea, Cough PD PAST MEDICAL HISTORY - Past Medical History Past Medical History: Yes Cardiovascular: Hypertension, High cholesterol, Atrial fibrillation, Murmur Respiratory: None Neuro: None Endocrine/Autoimmune: None GI: GERD, Ulcers : None HEENT: Chronic sinusitis Psych: None Musculoskeletal: Osteoporosis Derm: None - Past Surgical History Past Surgical History: Yes HEENT: Tonsil/Adenoidectomy - Present Medications Home Medications: Ambulatory Orders Medication Instructions Recorded Confirmed Cholecalciferol (Vitamin D3) 5,000 unit PO 12/08/13 04/17/15 [Vitamin D] Metoprolol Succinate [Toprol Xl] 100 mg PO DAILY 12/08/13 10/25/20 Pravastatin Sodium 40 mg PO DAILY 12/08/13 10/25/20 Chlorthalidone 25 mg DAILY 07/11/21 07/11/21 - Allergies Allergies/Adverse Reactions: Allergies Allergy/AdvReac Type Severity Reaction Status Date / Time Penicillins Allergy Unknown Unknown Verified 07/11/21 11:03 flecainide Allergy Dizziness Verified 07/11/21 11:03 - Social History Does the pt smoke?: No Smoking Status: Never smoker Does the pt drink ETOH?: Yes Does the pt have substance abuse?: No - Immunizations Immunizations are current?: Yes - POLST Patient has POLST: No PD ED PE NORMAL - Vitals Vital signs reviewed: Yes - General General: Alert and oriented X 3, No acute distress - HEENT HEENT: PERRL, EOMI - Neck Neck: Supple, no meningeal sign, No bony TTP - Cardiac Cardiac: Other (Irregularly irregular without murmur) - Respiratory Respiratory: No respiratory distress, Clear bilaterally - Abdomen Abdomen: Normal bowel sounds, Soft, Non tender - Back Back: No CVA TTP, No spinal TTP - Derm Derm: Normal color, Warm and dry - Extremities Extremities: No edema, No calf tenderness / cord - Neuro Neuro: Alert and oriented X 3, Normal speech Results - Vitals Vitals: Vital Signs - 24 hr 07/11/21 07/11/21 11:01 11:12 Temperature 36.2 C L Heart Rate 122 H 97 Respiratory 19 16 Rate Blood Pressure 156/102 H 146/81 H O2 Saturation 97 99 Oxygen O2 Source Room air - EKG (time done) 1050 Rate: Rate (enter#) (99) Rhythm: Atrial fibrillation [place]: Normal QRS: Normal Ischemia: Q waves (III/F). No: ST elevation c/w ischemia, ST depression - Labs Labs: Laboratory Tests 07/11/21 07/11/21 07/11/21 11:15 11:15 11:15 WBC 6.3 RBC 4.21 Hgb 13.8 Hct 42.5 MCV 101.0 H MCH 32.8 H MCHC 32.5 RDW 13.0 Plt Count 242 MPV 10.4 Neut # (Auto) 3.9 Lymph # (Auto) 1.5 [place] # (Auto) 0.7 Eos # (Auto) 0.2 Baso # (Auto) 0.1 Absolute Nucleated RBC 0.00 Nucleated RBC % 0.0 Sodium 142 Potassium 3.5 Chloride 103 Carbon Dioxide 30 Anion Gap 9.0 BUN 25 H Creatinine 0.8 Estimated GFR (MDRD) 68 L Glucose 93 Calcium 9.8 Magnesium 1.9 TSH 1.14 PD MEDICAL DECISION MAKING - ED course ED course: 85-year-old woman with paroxysmal atrial fibrillation who presents with an exacerbation of same for 5 days. We discussed that because of the time course I cannot safely Cardiovert her Without MAURI as she is not anticoagulated and has been in A. fib for 5 days. 85-year-old woman presents with 5 days of symptomatic atrial fibrillation. She is not anticoagulated due to history of GI bleeds. She remained stable in the emergency department without RVR. I discussed her case with her welding estimator, Dr. Ayan Wynn by phone who reviewed her records. He had previously referred her for consideration for watchman procedure and recommends she follow- up with that physician again for reconsideration for watchman plus or minus MAURI with cardioversion. Patient does feel bad in her A. fib but discussed with her that there was no indication for transfer, and cardioversion would not be safe after 5 days without anticoagulation. Departure - Departure Disposition: 01 Home, Self Care Clinical Impression: Paroxysmal atrial fibrillation Condition: Good Record reviewed to determine appropriate education?: Yes Instructions: Atrial Fibrillation Dc Comments: As discussed, I discussed your case today with your welding estimator, Dr. Wynn who recommends following up with Dr. Deluca for consideration or at least reconsideration for watchman procedure. Return for new or worsening symptoms. Dr. Deluca's phone number is .
[2021-07-11 11:39] LABS: BASOPHILS # (AUTO) 0.1 10^3/uL (0.0-0.1); BASOPHILS % (AUTO) 0.8 %; EOSINOPHILS # (AUTO) 0.2 10^3/uL (0.0-0.7); EOSINOPHILS % (AUTO) 2.4 %; HCT - HEMATOCRIT 42.5 % (37.0-47.0); HGB - HEMOGLOBIN 13.8 g/dL (12.0-16.0); LYMPHOCYTES # (AUTO) 1.5 10^3/uL (1.5-3.5); LYMPHOCYTES % (AUTO) 23.5 %; MEAN CORPUSCULAR HEMOGLOBIN 32.8 pg (27.0-31.0); MEAN CORPUSCULAR HGB CONC 32.5 g/dL (32.0-36.0); MEAN PLATELET VOLUME 10.4 fL (7.9-10.8); MONOCYTES # (AUTO) 0.7 10^3/uL (0.0-1.0); MONOCYTES % (AUTO) 11.7 %; NEUTROPHILS # (AUTO) 3.9 10^3/uL (1.5-6.6); NEUTROPHILS % (AUTO) 61.1 %; PLT - PLATELET COUNT 242 10^3/uL (130-450); RED BLOOD COUNT 4.21 10^6/uL (4.20-5.40); WHITE BLOOD COUNT 6.3 x10^3/uL (4.8-10.8)
[2021-07-11 11:52] LABS: CALCIUM 9.8 mg/dL (8.5-10.3); CREATININE 0.8 mg/dL (0.4-1.0); MAGNESIUM 1.9 mg/dL (1.7-2.8); POTASSIUM 3.5 mmol/L (3.5-5.0)
[2021-07-11 16:18] VITALS: BP 158/100
== END 2021-07-11 14:18 | disposition home or self-care (01) ==
LOC: ED 10:45
DX: I48.0 Paroxysmal atrial fibrillation (principal); I10 Essential (primary) hypertension
CPT/HCPCS: 36415; 80048; 83735; 84443; 85025; 93005; 99283; 99284

== ENCOUNTER 2021-07-26 09:00 | Emergency (ER) | payer MEDICARE, OTHER ==
[2021-07-26 09:31] LABS: BASOPHILS # (AUTO) 0.1 10^3/uL (0.0-0.1); EOSINOPHILS # (AUTO) 0.2 10^3/uL (0.0-0.7); EOSINOPHILS % (AUTO) 3.6 %; HCT - HEMATOCRIT 46.6 % (37.0-47.0); HGB - HEMOGLOBIN 14.9 g/dL (12.0-16.0); LYMPHOCYTES # (AUTO) 1.4 10^3/uL (1.5-3.5); LYMPHOCYTES % (AUTO) 21.6 %; MEAN CORPUSCULAR HEMOGLOBIN 32.7 pg (27.0-31.0); MEAN CORPUSCULAR VOLUME 102.4 fL (81.0-99.0); MEAN PLATELET VOLUME 10.4 fL (7.9-10.8); MONOCYTES # (AUTO) 0.6 10^3/uL (0.0-1.0); NEUTROPHILS % (AUTO) 63.5 %; PLT - PLATELET COUNT 259 10^3/uL (130-450); RED BLOOD COUNT 4.55 10^6/uL (4.20-5.40); RED CELL DISTRIBUTION WIDTH 13.7 % (12.0-15.0); WHITE BLOOD COUNT 6.3 x10^3/uL (4.8-10.8)
--- NOTE | 2021-07-26 09:33 | ED Physician Documentation ---
PD HPI CHEST PAIN - Stated complaint Stated Complaint: CHEST PX - Chief complaint Chief Complaint: Cardiac - History obtained from History obtained from: Patient - Additional information Additional information: 85yo with 2 days of constant chest discomfort, desribed as a "bumping heart," associated with difficulty catching her breath but then denies shortness of breath. Has paroxysmal afib, but no IA/ACS/CAD. Not currently on anticoagulation b/c of hx occult gi bleeding. States that after I last saw her on July 11 she was in A. fib for another week after that. Then also had it briefly 4 days ago. Review of Systems Ten Systems: 10 systems reviewed and negative Constitutional: reports: Fatigue. denies: Fever, Chills Cardiac: reports: Palpitations. denies: Chest pain / pressure, Pedal edema, Calf pain Respiratory: denies: Hemoptysis, Wheezing PD PAST MEDICAL HISTORY - Past Medical History Cardiovascular: Hypertension, High cholesterol, Atrial fibrillation, Murmur Respiratory: None Neuro: None Endocrine/Autoimmune: None GI: GERD, Ulcers : None HEENT: Chronic sinusitis Psych: None Musculoskeletal: Osteoporosis Derm: None - Past Surgical History Past Surgical History: Yes HEENT: Tonsil/Adenoidectomy - Present Medications Home Medications: Ambulatory Orders Medication Instructions Recorded Confirmed Cholecalciferol (Vitamin D3) 5,000 unit PO 12/08/13 04/17/15 [Vitamin D] Metoprolol Succinate [Toprol Xl] 100 mg PO DAILY 12/08/13 10/25/20 Pravastatin Sodium 40 mg PO DAILY 12/08/13 10/25/20 Chlorthalidone 25 mg DAILY 07/11/21 07/11/21 - Allergies Allergies/Adverse Reactions: Allergies Allergy/AdvReac Type Severity Reaction Status Date / Time Penicillins Allergy Unknown Unknown Verified 07/26/21 09:18 flecainide Allergy Dizziness Verified 07/26/21 09:18 - Social History Does the pt smoke?: No Smoking Status: Never smoker Does the pt drink ETOH?: Yes Does the pt have substance abuse?: No - Immunizations Immunizations are current?: Yes - POLST Patient has POLST: No PD ED PE NORMAL - Vitals Vital signs reviewed: Yes - General General: Alert and oriented X 3, No acute distress - Cardiac Cardiac: No murmur, Other (irreg/irreg) - Respiratory Respiratory: No respiratory distress, Clear bilaterally - Abdomen Abdomen: Non tender - Back Back: No CVA TTP, No spinal TTP - Derm Derm: Normal color, Warm and dry - Extremities Extremities: No edema, No calf tenderness / cord - Neuro Neuro: Alert and oriented X 3, Normal speech Results - Vitals Vitals: Vital Signs - 24 hr 07/26/21 07/26/21 09:09 09:38 Temperature 37.2 C Heart Rate 116 H 105 H Respiratory 16 12 Rate Blood Pressure 144/99 H 133/86 H O2 Saturation 99 96 Oxygen O2 Source Room air - EKG (time done) 0930 Rate: Rate (enter#) (119) Rhythm: Atrial fibrillation [place]: Normal QRS: Normal Ischemia: Normal ST segments Computer interpretation: Agree with computer - Labs Labs: Laboratory Tests 07/26/21 07/26/21 07/26/21 09:22 09:22 09:22 WBC 6.3 RBC 4.55 Hgb 14.9 Hct 46.6 MCV 102.4 H MCH 32.7 H MCHC 32.0 RDW 13.7 Plt Count 259 MPV 10.4 Neut # (Auto) 4.0 Lymph # (Auto) 1.4 L [place] # (Auto) 0.6 Eos # (Auto) 0.2 Baso # (Auto) 0.1 Absolute Nucleated RBC 0.00 Nucleated RBC % 0.0 Sodium 141 Potassium 3.7 Chloride 99 L Carbon Dioxide 29 Anion Gap 13.0 BUN 22 H Creatinine 1.0 Estimated GFR (MDRD) 53 L Glucose 129 H Calcium 9.9 Total Bilirubin 1.0 AST 24 ALT 29 Alkaline Phosphatase 83 Troponin I High Sens 6.4 Total Protein 7.1 Albumin 4.2 Globulin 2.9 Albumin/Globulin Ratio 1.4 Lipase 53 H - Rads (name of study) 1v cxr Radiology: EMP read contemporaneously (NAD) PD MEDICAL DECISION MAKING - ED course ED course: 85-year-old woman presents with symptomatic atrial fibrillation. She is not anticoagulated. She is in mild RVR. She has been in atrial fibrillation more than out over the last few weeks and again discussed with her that I do not think it would be safe to consider her for chemical or electrical cardioversion without MAURI which we do not have available to us. She is now on the list to see the nurse midwife regarding a watchman procedure but does not have it formally scheduled yet. Discussed with her that I cannot cardiovert her and we can safely anticoagulate her given her history but we should go up on her beta-blockade from 50 to 100 mg of metoprolol a day and may be stopping chlorthalidone as she has had some mildly low blood pressure readings pending follow-up. She declines a prescription for metoprolol stating she has plenty at home to double it. Departure - Departure Disposition: Home, Self Care Clinical Impression: Atrial fibrillation Qualifiers: Atrial fibrillation type: paroxysmal Qualified Code(s): I48.0 - Paroxysmal atrial fibrillation Condition: Good Record reviewed to determine appropriate education?: Yes Instructions: Atrial Fibrillation Dc Comments: As discussed, since you have been in atrial fibrillation more than out over the last few weeks, even though the current episode is not greater than 48 hours, it still would not be safe to cardiovert you since you are not on a blood thinner given history of GI bleeding. At this point I think it would be dela cruz to stop your chlorthalidone and double your metoprolol to 100 mg twice a day. Keep your follow-up appointment with Dr. Deluca for consideration for watchman procedure.
--- NOTE | 2021-07-26 09:34 | XRAY Report ---
PROCEDURE: Chest 1 View X-Ray INDICATIONS: Chest Pain TECHNIQUE: One view of the chest was acquired. COMPARISON: 08/18/2018 FINDINGS: Surgical changes and devices: None. Lungs and pleura: No pleural effusions or pneumothorax. Lungs are clear. Mediastinum: Mediastinal contours appear normal. Heart size is mildly enlarged. Bones and chest wall: No suspicious bony lesions. Overlying soft tissues appear unremarkable. IMPRESSION: No acute cardiopulmonary pathology. Reviewed by: David Kuo MD on 07/26/2021 9:33 AM PDT Approved by: David Kuo MD on 07/26/2021 9:33 AM PDT Station ID: [id number]
[2021-07-26 09:43] LABS: ALBUMIN 4.2 g/dL (3.2-5.5); ALBUMIN/GLOBULIN RATIO 1.4 (1.0-2.2); CALCIUM 9.9 mg/dL (8.5-10.3); POTASSIUM 3.7 mmol/L (3.5-5.0); TOTAL PROTEIN 7.1 g/dL (6.7-8.2)
[2021-07-26] MEDS ORDERED: METOPROLOL SUCCINATE 50 MG TABLET PO STA (09:54)
[2021-07-26 10:20] VITALS: BP 111/92
== END 2021-07-26 10:29 | disposition home or self-care (01) ==
LOC: ED 09:00
DX: I48.0 Paroxysmal atrial fibrillation (principal); I10 Essential (primary) hypertension; Z87.19 Personal history of other diseases of the digestive system
CPT/HCPCS: 36415; 71045; 80053; 83690; 84484; 85025; 93005; 99284; A9270

== ENCOUNTER 2021-12-22 06:32 | Emergency (ER) | payer MEDICARE, OTHER ==
[2021-12-22] MEDS ORDERED: lidocaine 1% 20 ML MDV SUBQ ONE (07:10)
--- NOTE | 2021-12-22 07:55 | ED Physician Documentation ---
PD HPI UPPER EXT INJURY - Stated complaint Stated Complaint: R WRIST LAC - Chief complaint Chief Complaint: Laceration - History obtained from History obtained from: Patient - History of Present Illness Location: Right, Forearm Type of injury: Laceration Where injury occurred: Home Timing - onset: Yesterday Timing - duration: Days (1) Timing - details: Abrupt onset, Still present Improved by: Dressing Worsened by: Moving, Palpating Contributing factors: Anticoagulated (with plavix) Similar symptoms before: Diagnosis (laceration) Recently seen: Other (urgent care) - Additonal information Additional information: 86-year-old Abby Mccloud was seen at the urgent care yesterday for a laceration to her right forearm that she sustained while gardening yesterday. Is uncertain exactly how this happened but she went inside after she was done gardening and had noticed blood all over her forearm. She went to the urgent care and they dressed this and overnight this is continued to ooze blood. She is on Plavix. She has otherwise not ill. She is uncertain about her tetanus status. Review of Systems Constitutional: denies: Fever Respiratory: denies: Cough GI: denies: Vomiting Skin: reports: Laceration (s) Musculoskeletal: denies: Extremity pain Neurologic: denies: Generalized weakness, Focal weakness, Numbness PD PAST MEDICAL HISTORY - Past Medical History Past Medical History: Yes Cardiovascular: Hypertension, High cholesterol, Atrial fibrillation, Murmur Respiratory: None Neuro: None Endocrine/Autoimmune: None GI: GERD, Ulcers : None HEENT: Chronic sinusitis Psych: None Musculoskeletal: Osteoporosis Derm: None - Past Surgical History Past Surgical History: Yes HEENT: Tonsil/Adenoidectomy - Present Medications Home Medications: Ambulatory Orders Medication Instructions Recorded Confirmed Cholecalciferol (Vitamin D3) 5,000 unit PO 12/08/13 04/17/15 [Vitamin D] Metoprolol Succinate [Toprol Xl] 100 mg PO DAILY 12/08/13 10/25/20 Pravastatin Sodium 40 mg PO DAILY 12/08/13 10/25/20 Chlorthalidone 25 mg DAILY 07/11/21 07/11/21 - Allergies Allergies/Adverse Reactions: Allergies Allergy/AdvReac Type Severity Reaction Status Date / Time Penicillins Allergy Unknown Unknown Verified 07/26/21 09:18 flecainide Allergy Dizziness Verified 07/26/21 09:18 - Social History Does the pt smoke?: No Smoking Status: Never smoker Does the pt drink ETOH?: Yes Does the pt have substance abuse?: No - Immunizations Immunizations are current?: Yes - POLST Patient has POLST: No PD ED PE NORMAL - Vitals Vital signs reviewed: Yes (hypertensive ) - General General: Alert and oriented X 3, No acute distress, Well developed/nourished - HEENT HEENT: Atraumatic, PERRL, EOMI - Respiratory Respiratory: No respiratory distress - Derm Derm: Normal color, Warm and dry, No rash - Extremities Extremities: No deformity, No edema, Other (2cm flap laceration does not penetrate the dermis entirely. There is oozing of blood from the margin that is continuous despite pressure applied for hours. 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 2-12 intact, No motor deficit, No sensory deficit, Normal speech Eye Opening: Spontaneous Motor: Obeys Commands Verbal: Oriented GCS Score: 15 - Psych Psych: Normal mood, Normal affect Results - Vitals Vitals: Vital Signs - 24 hr 12/22/21 06:39 Temperature 36.7 C Heart Rate 86 Respiratory 16 Rate Blood Pressure 150/80 H O2 Saturation 99 Oxygen O2 Source Room air Procedures - Laceration (location) right forearm Length in cm: 2 Wound type: Curved, Flap, Superficial, Into subcut fat Neurovascular status: Sensory intact, Motor intact, Vascular intact Anesthesia: Lidocaine 1% Wound preparation: Hibiclens, Irrigated copiously NS, Wound explored, To the base Skin layer closure: Nylon, Interrupted, Size #-0 - enter number (5-0), Sutures - enter # (4) Other: Patient tolerated well, No complications, Neurovascular intact, Dressing applied, Tetanus UTD PD MEDICAL DECISION MAKING - ED course Complexity details: reviewed old records, reviewed results, re-evaluated patient, considered differential, d/w patient ED course: 86-year-old female with a superficial laceration to the right forearm has had continuous oozing from the margin of this wound overnight. Here in the emergency department wound is cleansed explored sutured and dressed. The patient is up-to-date on her tetanus. Departure - Departure Disposition: 01 Home, Self Care Clinical Impression: Forearm laceration Qualifiers: Encounter type: initial encounter Laterality: right Qualified Code(s): S51.811A - Laceration without foreign body of right forearm, initial encounter Condition: Stable Instructions: ED Laceration Ext Sutr Stap Tape Follow-Up: ARAMIS JARVIS MD [Primary Care Provider] - Comments: Sutures should be removed in 7 to 10 days.
[2021-12-22 08:14] VITALS: BP 126/69
== END 2021-12-22 08:16 | disposition home or self-care (01) ==
LOC: ED 06:32
DX: S51.811A Laceration without foreign body of right forearm, initial encounter (principal); W45.8XXA Other foreign body or object entering through skin, initial encounter; Y93.H2 Activity, gardening and landscaping; Z79.01 Long term (current) use of anticoagulants; I48.91 Unspecified atrial fibrillation; I10 Essential (primary) hypertension
CPT/HCPCS: 12001; 99281

== ENCOUNTER 2022-05-17 18:42 | Outpatient (CLI) | payer MEDICARE, OTHER | END 2022-05-17 18:43 | disposition critical access hospital (66) | LOC: EMS 18:42 | DX: R53.1 Weakness (principal); R42 Dizziness and giddiness | CPT/HCPCS: A0425; A0427 ==

== ENCOUNTER 2022-05-17 19:07 | Emergency (ER) | payer MEDICARE, OTHER ==
--- NOTE | 2022-05-17 19:11 | ED Physician Documentation ---
History of Present Illness - Stated complaint Stated Complaint: AFIB - Additonal information Additional information: Patient is 86-year-old female presenting to the emergency department with lightheadedness and A. fib. Longstanding history of chronic atrial fibrillation. Follows with Dr.Peter Wynn, Cardiology at [facility]. Underwent cardioversion 04/27. Reported that she felt reasonably well until approximately 4-5 days ago when she went back into A. fib. Since that time has had dizziness similar to episode she has had previous. Denies any falls or loss of consciousness. Denies any chest pain or shortness of breath. Currently is on Plavix but does not take other anticoagulation secondary to gastrointestinal bleed. Has not yet spoken to her lecturer in marketing concerning her symptoms. Review of Systems Ten Systems: 10 systems reviewed and negative PD PAST MEDICAL HISTORY - Past Medical History Cardiovascular: Hypertension, High cholesterol, Atrial fibrillation, Murmur Respiratory: None Neuro: None Endocrine/Autoimmune: None GI: GERD, Ulcers : None HEENT: Chronic sinusitis Psych: None Musculoskeletal: Osteoporosis Derm: None - Past Surgical History Past Surgical History: Yes HEENT: Tonsil/Adenoidectomy - Present Medications Home Medications: Ambulatory Orders Medication Instructions Recorded Confirmed Cholecalciferol (Vitamin D3) 5,000 unit PO 12/08/13 04/17/15 [Vitamin D] Metoprolol Succinate [Toprol Xl] 100 mg PO DAILY 12/08/13 10/25/20 Pravastatin Sodium 40 mg PO DAILY 12/08/13 10/25/20 Chlorthalidone 25 mg DAILY 07/11/21 07/11/21 Potassium Chloride 40 meq PO DAILY #30 tablet 05/17/22 - Allergies Allergies/Adverse Reactions: Allergies Allergy/AdvReac Type Severity Reaction Status Date / Time Penicillins Allergy Unknown Unknown Verified 07/26/21 09:18 flecainide Allergy Dizziness Verified 07/26/21 09:18 - Social History Does the pt smoke?: No Smoking Status: Never smoker Does the pt drink ETOH?: Yes Does the pt have substance abuse?: No - Immunizations Immunizations are current?: Yes - POLST Patient has POLST: No PD ED PE NORMAL - Vitals Vital signs reviewed: Yes - General General: Alert and oriented X 3 - HEENT HEENT: Atraumatic, PERRL, EOMI, Ears normal - Neck Neck: Supple, no meningeal sign, No bony TTP - Cardiac Cardiac: Other (Irregularly irregular rhythm) - Respiratory Respiratory: Clear bilaterally - Abdomen Abdomen: Normal bowel sounds, Non tender - Female Female : Deferred - Rectal Rectal: Deferred Results - Vitals Vitals: Vital Signs - 24 hr 05/17/22 19:20 Temperature 36.9 C Heart Rate 104 H Respiratory 16 Rate Blood Pressure 133/93 H O2 Saturation 94 Oxygen O2 Source Room air - EKG (time done) 1924 Rate: Rate (enter#) (97) Rhythm: Atrial fibrillation [place]: Normal QRS: Normal Ischemia: Non specific changes Compare to prior EKG: Unchanged from prior EKG Computer interpretation: Agree with computer - Labs Labs: Laboratory Tests 05/17/22 05/17/22 05/17/22 19:26 19:26 19:26 WBC 5.8 RBC 4.70 Hgb 15.3 Hct 45.6 MCV 97.0 MCH 32.6 H MCHC 33.6 RDW 12.7 Plt Count 208 MPV 10.6 Neut # (Auto) 3.3 Lymph # (Auto) 1.7 Morrill # (Auto) 0.6 Eos # (Auto) 0.2 Baso # (Auto) 0.0 Absolute Nucleated RBC 0.00 Nucleated RBC % 0.0 PT 11.9 INR 1.1 Sodium 140 Potassium 2.9 L Chloride 102 Carbon Dioxide 23 Anion Gap 15.0 H BUN 28 H Creatinine 0.8 Estimated GFR (MDRD) 68 L Glucose 124 H Calcium 9.7 Magnesium 1.7 Total Bilirubin 0.7 AST 33 ALT 40 Alkaline Phosphatase 66 Troponin I High Sens Total Protein 7.2 Albumin 3.9 Globulin 3.3 Albumin/Globulin Ratio 1.2 Lipase 47 05/17/22 19:26 WBC RBC Hgb Hct MCV MCH MCHC RDW Plt Count MPV Neut # (Auto) Lymph # (Auto) Morrill # (Auto) Eos # (Auto) Baso # (Auto) Absolute Nucleated RBC Nucleated RBC % PT INR Sodium Potassium Chloride Carbon Dioxide Anion Gap BUN Creatinine Estimated GFR (MDRD) Glucose Calcium Magnesium Total Bilirubin AST ALT Alkaline Phosphatase Troponin I High Sens 8.8 Total Protein Albumin Globulin Albumin/Globulin Ratio Lipase PD MEDICAL DECISION MAKING - ED course Complexity details: reviewed results, d/w patient ED course: Patient is 86-year-old female with known history of chronic paroxysmal A. fib presenting to the emergency department with report of dizziness. Afebrile, hemodynamically stable. Noted to be in A. fib with nonspecific ST abnormalities unchanged from baseline EKG. Labs obtained demonstrated a hypokalemia with potassium 2.9. Potassium and magnesium repletion were initiated in the emergency department. Troponin negative. Chest x-ray nonacute. Patient does have longstanding history of chronic paroxysmal A. fib and the symptoms she is presenting with today are Quite typical for her as she has had multiple ER evaluations in the past for symptomatic A. fib. She is not currently anticoagulated and given that her symptoms have been ongoing for greater than 72 hours electrical cardioversion represents an unwarranted risk for thromboembolic effect. I will discharge on ongoing potassium and magnesium supplement. I will have the patient follow-up with her lecturer in marketing Dr. Ayan MckeonOr their office first Tomorrow at her or at earliest opportunity. Otherwise clear return precautions and follow-up instructions to be given prior to discharge. Departure - Departure Disposition: 01 Home, Self Care Clinical Impression: A-fib, Hypokalemia, Dizziness Instructions: Atrial Fibrillation Dc, Hypokalemia Dc Follow-Up: Ayan Wynn MD [Provider Admit Priv/Credential] - Prescriptions: Potassium Chloride 40 meq PO DAILY #30 tablet Comments: Thank you for allowing us to care for you today at [facility]. Perscription sent to [facility] Today in the emergency department your evaluated for any possible life- threatening medical emergency. You are found to be in atrial fibrillation however your heart rate overall seems reasonably well controlled. You are also found to have low blood potassium. You are given potassium supplementation here in the emergency department. I would like you to begin a potassium supplement at home. I also want you to contact your lecturer in marketing office as soon as possible in order to arrange for a follow-up appointment. As we discussed I recommend use of assistance devices such as waker or cane at home If it anytime you have any new or worsening symptoms please do not hesitate to return.
[2022-05-17 19:37] LABS: BASOPHILS % (AUTO) 0.7 %; EOSINOPHILS # (AUTO) 0.2 10^3/uL (0.0-0.7); EOSINOPHILS % (AUTO) 3.1 %; HCT - HEMATOCRIT 45.6 % (37.0-47.0); HGB - HEMOGLOBIN 15.3 g/dL (12.0-16.0); LYMPHOCYTES # (AUTO) 1.7 10^3/uL (1.5-3.5); LYMPHOCYTES % (AUTO) 29.2 %; MEAN CORPUSCULAR HEMOGLOBIN 32.6 pg (27.0-31.0); MEAN CORPUSCULAR HGB CONC 33.6 g/dL (32.0-36.0); MEAN PLATELET VOLUME 10.6 fL (7.9-10.8); MONOCYTES # (AUTO) 0.6 10^3/uL (0.0-1.0); MONOCYTES % (AUTO) 9.7 %; NEUTROPHILS # (AUTO) 3.3 10^3/uL (1.5-6.6); NEUTROPHILS % (AUTO) 56.8 %; PLT - PLATELET COUNT 208 10^3/uL (130-450); RED CELL DISTRIBUTION WIDTH 12.7 % (12.0-15.0); WHITE BLOOD COUNT 5.8 x10^3/uL (4.8-10.8)
[2022-05-17 19:39] LABS: INR 1.1 (0.8-1.2); PT - PROTHROMBIN TIME 11.9 secs (9.9-12.6)
[2022-05-17 19:58] LABS: ALBUMIN 3.9 g/dL (3.2-5.5); ALBUMIN/GLOBULIN RATIO 1.2 (1.0-2.2); BILIRUBIN,TOTAL 0.7 mg/dL (0.2-1.0); CALCIUM 9.7 mg/dL (8.5-10.3); CREATININE 0.8 mg/dL (0.4-1.0); MAGNESIUM 1.7 mg/dL (1.7-2.8); POTASSIUM 2.9 mmol/L (3.5-5.0); TOTAL PROTEIN 7.2 g/dL (6.7-8.2)
[2022-05-17] MEDS ORDERED: POTASSIUM CHLOR 10 MEQ/100 ML 10 MEQ/100 ML BAG IV STA (20:14)
[2022-05-17] MEDS ORDERED: POTASSIUM CHLORIDE 20 MEQ/15 ML UDC PO SCH (20:30)
--- NOTE | 2022-05-17 20:39 | XRAY Report ---
PROCEDURE: Chest 1 View X-Ray INDICATIONS: chest pain TECHNIQUE: One view of the chest was acquired. COMPARISON: None FINDINGS: Surgical changes and devices: None. Lungs and pleura: Lung volumes are low. Questionable left base pleural effusion and/or small opacity. Mediastinum: Mediastinal contours appear normal. Heart size is normal. Bones and chest wall: No suspicious bony lesions. Overlying soft tissues appear unremarkable. IMPRESSION: No dense consolidation. There is questionable left lung base airspace opacity versus atelectasis or e ffusion. Reviewed by: Vipul Witt MD on 05/17/2022 8:38 PM PDT Approved by: Vipul Witt MD on 05/17/2022 8:38 PM PDT Station ID: [id number]
[2022-05-17 22:27] VITALS: BP 125/94
[2022-05-18] MEDS ORDERED: MAGNESIUM OXIDE 400 MG TABLET PO SCH (08:00)
== END 2022-05-17 22:27 | disposition home or self-care (01) ==
LOC: ED 19:07
DX: I48.0 Paroxysmal atrial fibrillation (principal); E87.6 Hypokalemia
CPT/HCPCS: 36415; 71045; 80053; 83690; 83735; 84484; 85025; 85610; 93005; 96365; 99281; 99284; A9270

== ENCOUNTER 2024-03-27 12:13 | Emergency (ER) | payer MEDICARE, OTHER ==
--- NOTE | 2024-03-27 12:19 | ED Physician Documentation ---
PD HPI LOWER EXT INJURY - Stated complaint Stated Complaint: RT LEG WOUND - History obtained from History obtained from: Patient (She nicked a varicose vein on her right leg just a couple of hours ago and it has been bleeding.) PD PAST MEDICAL HISTORY - Past Medical History Cardiovascular: Hypertension, High cholesterol, Atrial fibrillation, Murmur Respiratory: None Neuro: None Endocrine/Autoimmune: None GI: GERD, Ulcers : None HEENT: Chronic sinusitis Psych: None Musculoskeletal: Osteoporosis Derm: None - Past Surgical History Past Surgical History: Yes HEENT: Tonsil/Adenoidectomy - Present Medications Home Medications: Ambulatory Orders Medication Instructions Recorded Confirmed Cholecalciferol (Vitamin D3) 5,000 unit PO 12/08/13 04/17/15 [Vitamin D] Metoprolol Succinate [Toprol Xl] 100 mg PO DAILY 12/08/13 10/25/20 Pravastatin Sodium 40 mg PO DAILY 12/08/13 10/25/20 Chlorthalidone 25 mg DAILY 07/11/21 07/11/21 Potassium Chloride 40 meq PO DAILY #30 tablet 05/17/22 - Allergies Allergies/Adverse Reactions: Allergies Allergy/AdvReac Type Severity Reaction Status Date / Time Penicillins Allergy Unknown Unknown Verified 03/27/24 12:19 flecainide Allergy Dizziness Verified 03/27/24 12:19 - Social History Does the pt smoke?: No Smoking Status: Never smoker Does the pt drink ETOH?: Yes Does the pt have substance abuse?: No - Immunizations Immunizations are current?: Yes - POLST Patient has POLST: No PD ED PE NORMAL - Vitals Vital signs reviewed: Yes - General General: Alert and oriented X 3, No acute distress - Extremities Extremities: Other (There is a 1 cm laceration over a varicose vein on the medial right calf.) - Neuro Neuro: Alert and oriented X 3, Normal speech Results - Vitals Vitals: Vital Signs - 24 hr 03/27/24 12:19 Heart Rate 86 Respiratory 16 Rate Blood Pressure 173/110 H O2 Saturation 97 Oxygen O2 Source Room air Procedures - Laceration (location) Right leg Length in cm: 1 Wound type: Stellate Anesthesia: Lidocaine 1% with epi Wound preparation: Chlorhexadine Skin layer closure: Nylon, Size #-0 - enter number (4-0), Sutures - enter # (A single horizontal mattress suture) Other: Patient tolerated well, No complications, Neurovascular intact Departure - Departure Disposition: 01 Home, Self Care Clinical Impression: Bleeding from varicose vein Condition: Good Record reviewed to determine appropriate education?: Yes Instructions: ED Laceration Ext Sutr Stap Tape Comments: You were seen today for varicose vein bleeding. There is [address] Whoever removes it, you should let them know that it is a horizontal mattress suture. Come back for any signs of infection which would include: Redness, swelling, drainage, increased pain, or fevers. You can wash it soap and water. Keep it covered and moist with bacitracin ointment which is available over the counter; avoid neosporin. Follow-up with your physician in 10-14 days for suture removal.
[2024-03-27] MEDS: LIDOCAINE 1%-EPI 1:100000 20 ML MDV SUBQ STA (12:33)
[2024-03-27 12:40] VITALS: BP 173/110; O2SAT 97
== END 2024-03-27 12:41 | disposition home or self-care (01) ==
LOC: ED 12:13
DX: S81.801A Unspecified open wound, right lower leg, initial encounter (principal); X58.XXXA Exposure to other specified factors, initial encounter; I83.891 Varicose veins of right lower extremity with other complications
CPT/HCPCS: 12001; 99283

== ENCOUNTER 2024-04-06 08:00 | Outpatient (CLI) | payer MEDICARE, OTHER ==
[2024-04-06 15:11] LABS: BILIRUBIN,URINE NEGATIVE (NEGATIVE); GLUCOSE, URINE (UA) NEGATIVE (NEGATIVE); KETONES,URINE (UA) NEGATIVE (NEGATIVE); LEUKOCYTE ESTERASE, URINE SMALL (NEGATIVE); NITRITE,URINE NEGATIVE (NEGATIVE); OCCULT BLOOD,URINE NEGATIVE (NEGATIVE); PH,URINE 7.5 PH (5.0-7.5); PROTEIN,URINE 30 mg/dL (NEGATIVE); UROBILINOGEN,URINE 1 (NORMAL) E.U./dL (NORMAL)
[2024-04-06 15:12] LABS: CLARITY,URINE CLOUDY (CLEAR)
[2024-04-06 15:39] LABS: BACTERIA,URINE Rare /HPF (None Seen); EPITHELIAL CELLS,UR FEW Transitional /HPF (<= Few); RBC,URINE 0-5 /HPF (0-5); SQUAMOUS EPITHELIAL CELL,UR RARE Squamous (<= Few); WBC,URINE >25 /HPF (0-5)
== END 2024-04-06 23:59 | disposition home or self-care (01) ==
LOC: LAB.S 08:00
PROVIDERS: ATTEND Emergency Medicine
DX: R30.0 Dysuria (principal)
CPT/HCPCS: 81001; 87077; 87086; 87181

== ENCOUNTER 2024-04-15 07:00 | Outpatient (CLI) | payer MEDICARE, OTHER ==
[2024-04-15 15:04] LABS: BILIRUBIN,URINE NEGATIVE (NEGATIVE); GLUCOSE, URINE (UA) NEGATIVE (NEGATIVE); KETONES,URINE (UA) NEGATIVE (NEGATIVE); LEUKOCYTE ESTERASE, URINE SMALL (NEGATIVE); NITRITE,URINE NEGATIVE (NEGATIVE); OCCULT BLOOD,URINE NEGATIVE (NEGATIVE); PH,URINE 7.5 PH (5.0-7.5); PROTEIN,URINE NEGATIVE (NEGATIVE); UROBILINOGEN,URINE 0.2 (NORMAL) E.U./dL (NORMAL)
[2024-04-15 15:12] LABS: CLARITY,URINE HAZY (CLEAR)
[2024-04-15 15:13] LABS: BACTERIA,URINE Rare /HPF (None Seen); RBC,URINE None Seen /HPF (0-5); SQUAMOUS EPITHELIAL CELL,UR RARE Squamous (<= Few)
== END 2024-04-15 23:59 | disposition home or self-care (01) ==
LOC: LAB.S 07:00
PROVIDERS: ATTEND Emergency Medicine
DX: R30.0 Dysuria (principal)
CPT/HCPCS: 81001; 87086

== ENCOUNTER 2024-10-22 19:18 | Inpatient (IN) ==
[2024-10-22] MEDS: IPRATROPIUM/ALBUTEROL 3 ML NEB INH STA (20:15)
[2024-10-22 20:42] LABS: BASOPHILS % (AUTO) 0.5 %; EOSINOPHILS # (AUTO) 0.1 10^3/uL (0.0-0.7); EOSINOPHILS % (AUTO) 1.2 %; HCT - HEMATOCRIT 46.6 % (37.0-47.0); HGB - HEMOGLOBIN 14.9 g/dL (12.0-16.0); LYMPHOCYTES # (AUTO) 0.6 10^3/uL (1.5-3.5); LYMPHOCYTES % (AUTO) 10.1 %; MEAN CORPUSCULAR HEMOGLOBIN 32.9 pg (27.0-31.0); MEAN CORPUSCULAR VOLUME 102.9 fL (81.0-99.0); MEAN PLATELET VOLUME 10.4 fL (7.9-10.8); MONOCYTES # (AUTO) 0.8 10^3/uL (0.0-1.0); NEUTROPHILS # (AUTO) 4.4 10^3/uL (1.5-6.6); NEUTROPHILS % (AUTO) 73.9 %; PLT - PLATELET COUNT 170 10^3/uL (130-450); RED BLOOD COUNT 4.53 10^6/uL (4.20-5.40); WHITE BLOOD COUNT 5.9 x10^3/uL (4.8-10.8)
[2024-10-22 20:59] LABS: ALBUMIN 4.1 g/dL (3.2-5.5); ALBUMIN/GLOBULIN RATIO 1.5 (1.0-2.2); BILIRUBIN,TOTAL 0.6 mg/dL (0.2-1.0); CALCIUM 9.2 mg/dL (8.5-10.3); CREATININE 0.8 mg/dL (0.6-1.3); POTASSIUM 3.7 mmol/L (3.5-4.5); TOTAL PROTEIN 6.9 g/dL (6.4-8.9)
--- NOTE | 2024-10-22 21:11 | ED Physician Documentation ---
PD HPI DYSPNEA Stated complaint Stated Complaint: SOA, RSV Chief complaint Chief Complaint: Resp Additional information Additional information: 89-year-old woman with history of atrial fibrillation status post watchman's procedure Presents with dyspnea and cough. Patient reports feeling sick for the last week. She is having a progressively worsening dry cough. She denies chest pain. She denies angina. She has been having dyspnea at rest and on exertion. She denies a history of COPD or asthma. She is not having abdominal pain. No vomiting. No fever at home. She was diagnosed with RSV a few days ago and prescribed an albuterol inhaler for wheezing, but she has not picked up this inhaler yet as she did not want to learn how to use it. She does live alone at home. Meds/Allgy Home Medications Ambulatory Orders Medication Instructions Recorded Confirmed cholecalciferol (vitamin D3) 125 5,000 unit PO DAILY 12/08/13 10/22/24 mcg (5,000 unit) tablet pravastatin 40 mg tablet 40 mg PO HS 12/08/13 10/22/24 chlorthalidone 25 mg tablet 25 mg PO DAILY 07/11/21 10/22/24 albuterol sulfate 90 mcg/actuation See Rx Instructions inhalation 6XD 10/21/24 10/21/24 aerosol inhaler (Ventolin HFA) Wheezing,Cough #8.5 grams clopidogrel 75 mg tablet 75 mg PO DAILY 10/22/24 10/22/24 halobetasol propionate 0.05 % 1 applic topical BID PRN dermatitis 10/22/24 10/22/24 topical ointment metoprolol succinate 200 mg 200 mg PO DAILY 10/22/24 10/22/24 tablet,extended release 24 hr Allergies Allergies Allergy/AdvReac Type Severity Reaction Status Date / Time Penicillins Allergy Unknown Unknown Verified 10/22/24 19:28 flecainide Allergy Dizziness Verified 10/22/24 19:28 [facility] Medical History Medical History (Updated 10/22/24 @ 23:08 by Marii Merchant MD) HTN (hypertension) Social History Social History Smoking Status: Never smoker If you are a former smoker, when did you quit? (Date/Year): 1973 Relationship: Do you feel safe in your home environment?: Yes Suffered physical, verbal, emotional, or financial abuse?: No History of Abuse: No Frequency: Occasional POLST Patient has POLST: No Exam Exam Patient resting in no distress. Lungs with expiratory wheezing bilaterally. There is no tachypnea or accessory muscle use. Patient is not in respiratory distress. S1 and S2 audible. Abdomen soft and nontender. Patient 88% on room air requiring 2 L of oxygen for adequate saturation. No calf tenderness or unilateral swelling. No pitting edema of the legs. Results Vitals Vitals: Vital Signs - 24 hr 10/22/24 19:23 10/22/24 19:31 10/22/24 20:00 Temperature 36.5 C Temperature Source Temporal Artery Scan Pulse Rate 103 H 117 H 101 H Respiratory Rate 24 26 H 30 H Blood Pressure 191/121 H 155/120 H 140/70 H O2 Saturation 95 94 94 O2 Source Nasal cannula Nasal cannula Nasal cannula If not protocol: Oxygen Flow, liters/minute 2 2 2 Pain Intensity 0 0 0 10/22/24 20:15 10/22/24 22:02 10/22/24 22:39 Temperature Temperature Source Pulse Rate 104 H 100 108 H Respiratory Rate 28 H 18 29 H Blood Pressure 136/85 H 131/80 H O2 Saturation 95 94 O2 Source Nasal cannula Nasal cannula Nasal cannula If not protocol: Oxygen Flow, liters/minute 2 2 2 Pain Intensity 0 0 Oxygen O2 Source Nasal cannula EKG (time done) 20:03: EKG releavant findings:: EKG personally interpreted by author of this note. Relevant findings are: Rate: Rate (enter#) (112) Rhythm: Atrial fibrillation [place]: Normal QRS: QRS normal Ischemia: Normal ST segments; No ST elevation c/w ischemia or ST elevation c/w repol Computer interpretation: Agree with computer Labs Labs: Laboratory Tests 10/22/24 10/22/24 20:09 20:35 WBC 5.9 RBC 4.53 Hgb 14.9 Hct 46.6 MCV 102.9 H MCH 32.9 H MCHC 32.0 RDW 13.0 Plt Count 170 MPV 10.4 Neut # (Auto) 4.4 Lymph # (Auto) 0.6 L Kidder # (Auto) 0.8 Eos # (Auto) 0.1 Baso # (Auto) 0.0 Absolute Nucleated RBC 0.00 Nucleated RBC % 0.0 Sodium 134 L Potassium 3.7 Chloride 93 L Carbon Dioxide 34 H Anion Gap 7.0 BUN 20 Creatinine 0.8 Estimated GFR (MDRD) 68 L Glucose 125 H Calcium 9.2 Total Bilirubin 0.6 AST 51 H ALT 40 Alkaline Phosphatase 66 Total Protein 6.9 Albumin 4.1 Globulin 2.8 Albumin/Globulin Ratio 1.5 Nasal Influenza B PCR NOT DETECTED Nasal Influenza A PCR NOT DETECTED Nasal RSV (PCR) DETECTED A Nasal SARS-CoV-2 (PCR) NOT DETECTED PD Medical Decision Making ED course ED course: Presents with 1 week of viral URI symptoms. Patient has been diagnosed with RSV. On exam, she is wheezing in both lung peralta. She denies a history of COPD or asthma. Patient requiring jellies of oxygen to maintain saturations. I did obtain an ECG to rule out ischemia and arrhythmia, and neither of these are present. Chest radiograph interpreted by me as no acute cardiopulmonary disease. Radiology in concordance with interpretation. I was unable to wean the patient off submental oxygen, so I will admit to the hospital for wheezing associated viral infection due to RSV. She was also given 40 mg of prednisone. Discharge Plan Discharge Patient Disposition: 66 [facility] DC/Xfer Condition: Poor Clinical Impression: Respiratory syncytial virus (RSV), Wheezing
[2024-10-22 21:24] LABS: INFLUENZA A- RESP PCR PANEL NOT DETECTED; INFLUENZA B - RESP PCR PANEL NOT DETECTED; RSV- RESP PCR PANEL DETECTED; SARS-CoV-2 -RESP PCR PANEL NOT DETECTED
--- NOTE | 2024-10-22 21:47 | XRAY Report ---
PROCEDURE: XR Chest 2V INDICATIONS: dyspnea TECHNIQUE: 2 views of the chest were acquired. COMPARISON: 08/21/2025 FINDINGS: Surgical changes and devices: None. Lungs and pleura: Mildly hyperinflated and hyperlucent lungs. Coarse interstitial markings and mild lower lobe bronchial wall thickening. Mediastinum: Mild cardiomegaly. Normal mediastinal contour. Bones and chest wall: Osteopenia. Chronic appearing compression fractures of the lower thoracic spin e. IMPRESSION: Hyperinflation suggesting COPD or chronic emphysema. Mild cardiomegaly with chronic appearing diffuse interstitial thickening suggesting edema. Correlate with BNP. Reviewed by: Kiya Carballo MD on 10/22/2024 9:45 PM PST Approved by: Kiya Carballo MD on 10/22/2024 9:45 PM PST Station ID: [id number]
[2024-10-22] MEDS ORDERED: ONDANSETRON 4 MG/2 ML VIAL IVP PRN (22:44)
[2024-10-22] MEDS: predniSONE 20 MG TABLET PO STA (22:44)
[2024-10-22] MEDS ORDERED: ONDANSETRON ODT 4 MG TABLET TL PRN (22:44)
[2024-10-22] MEDS ORDERED: ACETAMINOPHEN 325 MG TABLET PO PRN (22:44)
--- NOTE | 2024-10-22 22:54 | HISTORY & PHYSICAL EXAMINATION ---
Chief Complaint Chief Complaint Chief Complaint: SOB History of Present Illness Admitted From Admitted From:: ER History Obtained From Records Reviewed: Yes History obtained from: Pt, chart, staff Exam Limitations: Virtual exam History of Present Illness HPI Comment/Other: H&P was conducted via video remotely, using [employer] Cart. Patient is in [place]. Physician is in [place]. THERAPEUTIC RECREATION DIRECTOR is at bedside. 89 yo F with PMH of tobacco use, Paroxysmal AFib s/p Watchmann procedure on Plavix, PUD, HTN, HLD, presented to the ER with c/o 7 day h/o URI symptoms, SOB. Pt began to have symptoms 1 week ago on 10/14/24, 3 days after S[facility] Gabi when she did have contact with someone who had URI symptoms. Pt c/o coryza, cough with brown sputum, F/C, SOB, wheezing, fatigue, decreased PO intake. Tmax at home was 101F. Pt's symptoms gradually worsened, especially SOB. She went to on 10/19/24 and 10/21/24 and was dx'd with RSV+ and given px for Albuterol MDI, which she has not picked up. Pt has not had wheezing, SOB with previous URIs. No previous hospitalizations for SOB. Pt did smoke x 20 years, 1 ppd, quit in 1972. EMS reported SpO2 88% RA, placed pt on O2 NC. In the ER, HR 113, RR 29, SpO2 86% RA-94% 2L NC O2, Na 134, MCV 102.9, Glc 125, CO2 34, RSV+ CXR: Hyperinflation suggesting COPD or chronic emphysema. Mild cardiomegaly with chronic appearing diffuse interstitial thickening suggesting edema. EKG: not available in chart yet; ER Provider reports AFib at 112 bpm, no STTw changes. Pt was given O2, Prednisone 40 mg PO and Duonebs in the ER. [facility] Medical History Medical History (Updated 10/22/24 @ 23:08 by Marii Merchant MD) HTN (hypertension) Social History Social History Smoking Status: Never smoker If you are a former smoker, when did you quit? (Date/Year): 1972 Relationship: Do you feel safe in your home environment?: Yes Suffered physical, verbal, emotional, or financial abuse?: No History of Abuse: No Frequency: Occasional POLST Patient has POLST: No Meds/Allgy Home Medications Ambulatory Orders Medication Instructions Recorded Confirmed cholecalciferol (vitamin D3) 125 5,000 unit PO DAILY 12/08/13 10/22/24 mcg (5,000 unit) tablet pravastatin 40 mg tablet 40 mg PO HS 12/08/13 10/22/24 chlorthalidone 25 mg tablet 25 mg PO DAILY 07/11/21 10/22/24 albuterol sulfate 90 mcg/actuation See Rx Instructions inhalation 6XD 10/21/24 10/21/24 aerosol inhaler (Ventolin HFA) Wheezing,Cough #8.5 grams clopidogrel 75 mg tablet 75 mg PO DAILY 10/22/24 10/22/24 halobetasol propionate 0.05 % 1 applic topical BID PRN dermatitis 10/22/24 10/22/24 topical ointment metoprolol succinate 200 mg 200 mg PO DAILY 10/22/24 10/22/24 tablet,extended release 24 hr Allergies Allergies Allergy/AdvReac Type Severity Reaction Status Date / Time Penicillins Allergy Unknown Unknown Verified 10/22/24 19:28 flecainide Allergy Dizziness Verified 10/22/24 19:28 Exam Constitutional normal general appearance HENMT normocephalic Eyes PERRL and no scleral icterus Respiratory cart stethoscope not working; per ER Provider: decreased BS, diffuse wheezing Cardiovascular cart stethoscope not working; per ER Provider: Irreg Irreg, tachy Gastrointestinal per ER Provider: non-distended, NT, Soft Extremities per ER Provider: moves all extrem, no edema Neurology A+Ox3, normal speech, cooperative; per ER Provider: NFD Conclusion/Plan Problem List (1) COPD exacerbation: Plan Acute Respiratory Failure with Hypoxia Hypercapnia Tachypnea RSV + COPD Exacerbation H/o tobacco use Cough Shortness of breath Fever -RR 29, SpO2 86% RA-94% 2L NC O2, CO2 34, RSV+ -CXR: Hyperinflation suggesting COPD or chronic emphysema. Mild cardiomegaly with chronic appearing diffuse interstitial thickening suggesting edema. -Pt was given O2, Prednisone 40 mg PO and Duonebs in the ER. -admit to Med Surg with Tele -O2 support PRN -Duonebs PRN -add steroid MDI -SoluMedrol 40 mg IV daily Hyponatremia Decreased PO intake d/t illness -Na 134 -hold home medications: Chlorthalidone Paroxysmal AFib s/p Watchmann procedure on Plavix HTN HLD Tachycardia -HR 113 -EKG: not available in chart yet; ER Provider reports AFib at 112 bpm, no STTw changes. -continue home medications: Plavix, Metoprolol, statin -hold home medications: Chlorthalidone d/t Hyponatremia Macrocytosis -MCV 102.9 -check B12/Folate Hyperglycemia -Glc 125 -check Hgba1c H/o PUD -PPI ordered VTE Prophylaxis: SCDs only d/t Plavix and h/o PUD Code Status: pt says that she has a POLST and she is DNR/DNI ~Marii Merchant MD Hospitalist Lab Results Lab results reviewed: Yes 10/22/24 20:35 10/22/24 20:35
[2024-10-23] MEDS: SODIUM CHLORIDE FLUSH 0.9% 10 ML SYRINGE IVP SCH (00:49)
[2024-10-23] MEDS: BENZONATATE 100 MG CAPSULE PO PRN (00:50)
--- NOTE | 2024-10-23 02:35 | PROVIDER PROGRESS NOTE ---
Integrated Pest Management Technician Note Integrated Pest Management Technician Note Integrated Pest Management Technician Note: per nurse "Patient is a new admit. Here for COPD exacerbation. She has history of paroxysmal afib s/p Watchmann procedure. She is on Metoprolol Succinate 200ms po daily. She is afib with rvr on tele. HR is between 90s to 120's. " lopressor 5 mg iv x 1
[2024-10-23] MEDS: METOPROLOL 5 MG/5 ML VIAL IVP ONE ×2 (03:16→04:47)
[2024-10-23 06:03] LABS: BASOPHILS % (AUTO) 0.2 %; HCT - HEMATOCRIT 43.6 % (37.0-47.0); LYMPHOCYTES # (AUTO) 0.4 10^3/uL (1.5-3.5); LYMPHOCYTES % (AUTO) 10.2 %; MEAN CORPUSCULAR HEMOGLOBIN 32.6 pg (27.0-31.0); MEAN CORPUSCULAR HGB CONC 32.1 g/dL (32.0-36.0); MEAN CORPUSCULAR VOLUME 101.4 fL (81.0-99.0); MEAN PLATELET VOLUME 10.8 fL (7.9-10.8); MONOCYTES # (AUTO) 0.2 10^3/uL (0.0-1.0); MONOCYTES % (AUTO) 5.2 %; NEUTROPHILS # (AUTO) 3.6 10^3/uL (1.5-6.6); NEUTROPHILS % (AUTO) 84.2 %; PLT - PLATELET COUNT 172 10^3/uL (130-450); WHITE BLOOD COUNT 4.2 x10^3/uL (4.8-10.8)
[2024-10-23 06:22] LABS: CALCIUM 9.1 mg/dL (8.5-10.3); CREATININE 0.7 mg/dL (0.6-1.3); MAGNESIUM 1.8 mg/dL (1.7-2.3); POTASSIUM 3.4 mmol/L (3.5-4.5)
[2024-10-23] MEDS: PANTOPRAZOLE 40 MG TABLET PO SCH (06:50)
[2024-10-23] MEDS ORDERED: HALOBETASOL PROPIONATE 0.05% TOP PRN (07:05)
--- NOTE | 2024-10-23 07:37 | PHARMACY PROGRESS NOTE ---
Best Possible Medication History Admit Date and Time: 10/22/24 [id number] Home Medications Medication Instructions Recorded Confirmed Type cholecalciferol (vitamin D3) 125 5,000 unit PO DAILY 12/08/13 10/22/24 History mcg (5,000 unit) tablet pravastatin 40 mg tablet 40 mg PO HS 12/08/13 10/22/24 History chlorthalidone 25 mg tablet 25 mg PO DAILY 07/11/21 10/22/24 History albuterol sulfate 90 mcg/actuation See Rx Instructions inhalation 6XD 10/21/24 10/23/24 Rx aerosol inhaler (Ventolin HFA) Wheezing,Cough #8.5 grams clopidogrel 75 mg tablet 75 mg PO DAILY 10/22/24 10/22/24 History halobetasol propionate 0.05 % 1 applic topical BID PRN dermatitis 10/22/24 10/22/24 History topical ointment metoprolol succinate 200 mg 200 mg PO DAILY 10/22/24 10/22/24 History tablet,extended release 24 hr Processed by: Nursing Medications reviewed in ED?: Yes [facility] Statement: As the person ultimately responsible for medication therapy, providers are able to order a medication from an existing home medication list in [facility] via the "Reconcile Routine" prior to Confirmation of that medication by family support coordinator. Such practice is discouraged except when the physician, in their clinical judgment, deems that a medical need exists for a medication without regard to previous use.
[2024-10-23] MEDS: IPRATROPIUM/ALBUTEROL 3 ML NEB INH PRN (08:04)
[2024-10-23] MEDS: BUDESONIDE 0.5 MG/2 ML NEB INH SCH (08:04)
[2024-10-23] MEDS: methylPREDNISolone SUCCINATE 40 MG/ML VIAL IVP SCH (09:58)
[2024-10-23] MEDS: METOPROLOL SUCCINATE 50 MG TABLET PO SCH (09:58)
[2024-10-23] MEDS: CHOLECALCIFEROL 5,000 UNIT CAPSULE PO SCH (09:58)
[2024-10-23] MEDS: guaiFENesin 600 MG TABLET PO SCH (09:59)
[2024-10-23] MEDS: CLOPIDOGREL 75 MG TABLET PO SCH (09:59)
--- NOTE | 2024-10-23 11:19 | PROVIDER PROGRESS NOTE ---
Subjective Subjective Subjective: Patient states that she started feeling short of breath on 10/19. Initially, she went to urgent care. Urgent care notes were reviewedshe first went on 10/19 for cough and congestion, postnasal drip, sinus congestion. At this time, chest x- ray was done which showed no obvious pneumonia. Her viral swab was positive for RSV. She was advised symptomatic treatment. She then returned on 10/21 for worsening fever, fatigue, severe cough with phlegm production. Chest x-ray was done again, with no obvious infiltrate seen. At this time, she was prescribed an albuterol inhaler for symptomatic treatment. Patient does not have a history of known COPD. However, she did smoke for about 20 years, and quit in 1972. She has never had pulmonary function testing done. When she arrived, she had no leukocytosis. RSV on viral swab was once again positive. Chest x-ray was repeated here, and it showed hyperinflation suggesting COPD or chronic emphysema. It also showed mild cardiomegaly. She was requiring 2 L of oxygen, although there is no documented hypoxia. Of note, her last ECHO was in 06/08; at this time, it was noted that she her left systolic function was normal with EF of 60 to 65%. And she had mild aortic stenosis. Diastolic dysfunction cannot be determined. She does have a history of atrial fibrillation, and is on Plavix for presumed CAD, although she cannot tell if this is her diagnosis. She is not on any blood thinners. Current Medications Current Medications Current Medications: Current Medications Generic Name Dose Route Start Last Admin Trade Name Freq PRN Reason Stop Dose Admin Acetaminophen 650 mg 10/22/24 22:44 Acetaminophen 325 Mg Tablet PO Q4HR PRN Pain 1 to 4, or Fever Albuterol/Ipratropium 3 ml 10/22/24 22:49 10/23/24 08:04 Ipratropium/Albuterol 3 Ml Neb INH 3 ml Q2HR PRN Administration Wheezing Benzonatate 100 mg 10/22/24 22:50 10/23/24 00:50 Benzonatate 100 Mg Capsule PO 100 mg Q8H PRN Administration Cough Budesonide 0.5 mg 10/23/24 07:00 10/23/24 08:04 Budesonide 0.5 Mg/2 Ml Neb INH 0.5 mg RTBID FAIZAN Administration Cholecalciferol 5,000 unit 10/23/24 09:00 10/23/24 09:58 Cholecalciferol 5,000 Unit Capsule PO 5,000 unit DAILY FAIZAN Administration Clopidogrel Bisulfate 75 mg 10/23/24 09:00 10/23/24 09:59 Clopidogrel 75 Mg Tablet PO 75 mg DAILY FAIZAN Administration Guaifenesin 600 mg 10/23/24 09:00 10/23/24 09:59 Guaifenesin 600 Mg Tablet PO 600 mg DAILY FAIZAN Administration Methylprednisolone 40 mg 10/23/24 09:00 10/23/24 09:58 Methylprednisolone Succinate 40 Mg/Ml Vial IVP 40 mg DAILY FAIZAN Administration Metoprolol Succinate 200 mg 10/23/24 09:00 10/23/24 09:58 Metoprolol Succinate 50 Mg Tablet PO 200 mg DAILY FAIZAN Administration Ondansetron HCl 4 mg 10/22/24 22:44 Ondansetron Odt 4 Mg Tablet TL Q6HR PRN Nausea / Vomiting Ondansetron HCl 4 mg 10/22/24 22:44 Ondansetron 4 Mg/2 Ml Vial IVP Q6HR PRN Nausea / Vomiting Pantoprazole Sodium 40 mg 10/23/24 07:00 10/23/24 06:50 Pantoprazole 40 Mg Tablet PO 40 mg QDAC [facility] Administration Halobetasol 1 each 10/23/24 07:05 Propionate 0.05 % TOP Ointment BID PRN dermatitis Pravastatin Sodium 40 mg 10/23/24 21:00 Pravastatin 40 Mg Tablet PO HS [facility] Sodium Chloride 10 ml 10/22/24 22:44 Sodium Chloride Flush 0.9% 10 Ml Syringe IVP PRN PRN NEEDED PER PROVIDER ORDERS Sodium Chloride 10 ml 10/23/24 01:00 10/23/24 09:58 Sodium Chloride Flush 0.9% 10 Ml Syringe IVP 10 ml 0100,0900,1700 [facility] Administration Objective Vital Signs/Intake & Output Reviewed Vital Signs: Yes Vital Signs: Vital Signs x48h Temp Pulse Pulse Resp BP Pulse Ox O2 Flow Rate 10/23/24 09:00 98.1 F 100 21 139/87 H 98 2 10/23/24 08:07 74 20 2 10/23/24 08:05 2 10/23/24 04:46 97.9 F 73 20 127/74 93 2 10/23/24 04:28 96 129/88 95 2 10/23/24 04:14 87 154/101 H 94 2 10/23/24 04:00 90 160/91 H 94 2 10/23/24 03:47 110 H 20 160/91 H 2 10/23/24 03:31 97.9 F 97 20 150/99 H 93 2 10/23/24 03:29 103 H 144/116 H 10/23/24 03:24 109 H 16 133/86 H 92 2 Intake & Output: Intake & Output 10/20/24 10/21/24 10/22/24 10/23/24 23:59 23:59 23:59 23:59 Intake Total 440 / 440 Balance 440 / 440 Weight (kg) 88 kg 83.5 kg Objective General Appearance: positive No acute distress and Alert Eyes Bilateral: positive Normal inspection and PERRL ENT: positive ENT inspection nml, Pharynx nml and No signs of dehydration Neck: positive Nml inspection, Thyroid nml and No JVD Respiratory: positive Chest non-tender, No respiratory distress and Wheezes (diffuse expiratory wheezes noted) Cardiovascular: positive No murmur, No gallop and Irregularly irregular; negative Tachycardia or Bradycardia Abdomen: positive Non-tender; negative Tenderness, Guarding, Rebound, Hepatomegaly or Splenomegaly Back: negative Nml inspection, CVA tenderness (R) or CVA tenderness (L) Skin: positive Color nml, No rash, Warm and Dry Extremities: positive Non-tender, Full ROM and No pedal edema Neurologic/Psychiatric: positive Oriented x3 and Mood/affect nml Lab Results 10/23/24 05:16 10/23/24 05:16 Other Labs: Lab Results x24hrs 10/23/24 10/22/24 10/22/24 Range/Units 05:16 20:35 20:09 WBC 4.2 L 5.9 (4.8-10.8) x10^3/uL RBC 4.30 4.53 (4.20-5.40) 10^6/uL Hgb 14.0 14.9 (12.0-16.0) g/dL Hct 43.6 46.6 (37.0-47.0) % MCV 101.4 H 102.9 H (81.0-99.0) fL MCH 32.6 H 32.9 H (27.0-31.0) pg MCHC 32.1 32.0 (32.0-36.0) g/dL RDW 13.0 13.0 (12.0-15.0) % Plt Count 172 170 (130-450) 10^3/uL MPV 10.8 10.4 (7.9-10.8) fL Neut # (Auto) 3.6 4.4 (1.5-6.6) 10^3/uL Lymph # (Auto) 0.4 L 0.6 L (1.5-3.5) 10^3/uL [place] # (Auto) 0.2 0.8 (0.0-1.0) 10^3/uL Eos # (Auto) 0.0 0.1 (0.0-0.7) 10^3/uL Baso # (Auto) 0.0 0.0 (0.0-0.1) 10^3/uL Absolute Nucleated RBC 0.00 0.00 x10^3/uL Nucleated RBC % 0.0 0.0 /100WBC Sodium 135 134 L (135-145) mmol/L Potassium 3.4 L 3.7 (3.5-4.5) mmol/L Chloride 94 L 93 L (101-111) mmol/L Carbon Dioxide 32 34 H (21-32) mmol/L Anion Gap 9.0 7.0 (6-13) BUN 17 20 (6-20) mg/dL Creatinine 0.7 0.8 (0.6-1.3) mg/dL Estimated GFR (MDRD) 79 L 68 L (>89) Glucose 143 H 125 H (74-104) mg/dL Calcium 9.1 9.2 (8.5-10.3) mg/dL Magnesium 1.8 (1.7-2.3) mg/dL Total Bilirubin 0.6 (0.2-1.0) mg/dL AST 51 H (10-42) IU/L ALT 40 (10-60) IU/L Alkaline Phosphatase 66 (42-121) IU/L Total Protein 6.9 (6.4-8.9) g/dL Albumin 4.1 (3.2-5.5) g/dL Globulin 2.8 (2.1-4.2) g/dL Albumin/Globulin Ratio 1.5 (1.0-2.2) Vitamin B12 663 (180-914) pg/mL Folate 40.0 (5.90 - >24.8) ng/mL Nasal Influenza B PCR NOT DETECTED Nasal Influenza A PCR NOT DETECTED Nasal RSV (PCR) DETECTED A Nasal SARS-CoV-2 (PCR) NOT DETECTED Diagnostic Imaging Diagnostic Imaging Results: positive Final report reviewed Assessment/Plan Problem List (1) Acute hypoxic respiratory failure: Impression: Patient presented with dyspnea, cough, subjective fevers and chills. Was placed on 2 L nasal cannula. Has had RSV since 10/19/2024. Has been to urgent care few times in the last few days with no pneumonia noted on chest x-ray done 09/18, 09/20, and 09/21. Chest x-ray does look hyperinflated. Wheezing on exam is noted. Patient has a former history of smoking, quit in 1972. Has never had PFTs done. Received Solu-Medrol IV on admission. Transition to oral prednisone today. Continue supportive treatment with Robitussin, incentive spirometry. Wean oxygen as tolerated. Will do ambulatory pulse oximetry test prior to discharge. (2) COPD exacerbation: Impression: Patient does have a former smoking history, and chest x-ray has findings indicative of possible COPD. Will likely need PFT testing in the outpatient setting. The meantime, we will continue prednisone while here. Will also continue DuoNebs every 4 hours as needed. (3) Respiratory syncytial virus (RSV): Impression: Supportive treatment as outlined above. Qualifiers: RSV infection type: unspecified Qualified Code(s): B33.8 - Other specified viral diseases (4) Paroxysmal atrial fibrillation: Impression: Patient did have an episode of rapid ventricular response while in the emergency room. She required 2 doses of 5 mg of metoprolol. She is now back on her home dose of metoprolol succinate 200 mg daily without any further episodes of rapid ventricular response. Patient is not in any anticoagulation. She does take Plavix for CAD though.
[2024-10-23 11:58] LABS: ESTIMATED AVERAGE GLUCOSE 117 mg/dL (70-100); HEMOGLOBIN A1c% 5.7 % (4.27-6.07)
[2024-10-23] MEDS: guaiFENesin/DEXTROMETHORPHAN 10 ML UDC PO PRN (17:19)
[2024-10-23] MEDS: POTASSIUM CHLORIDE 20 MEQ TABLET PO ONE (18:34)
[2024-10-23] MEDS: PRAVASTATIN 40 MG TABLET PO SCH (20:57)
[2024-10-24 06:05] LABS: BASOPHILS % (AUTO) 0.4 %; EOSINOPHILS % (AUTO) 0.1 %; HCT - HEMATOCRIT 45.8 % (37.0-47.0); HGB - HEMOGLOBIN 14.7 g/dL (12.0-16.0); LYMPHOCYTES % (AUTO) 21.8 %; MEAN CORPUSCULAR HEMOGLOBIN 32.5 pg (27.0-31.0); MEAN CORPUSCULAR HGB CONC 32.1 g/dL (32.0-36.0); MEAN CORPUSCULAR VOLUME 101.3 fL (81.0-99.0); MEAN PLATELET VOLUME 10.2 fL (7.9-10.8); MONOCYTES % (AUTO) 14.9 %; NEUTROPHILS % (AUTO) 62.5 %; PLT - PLATELET COUNT 183 10^3/uL (130-450); RED BLOOD COUNT 4.52 10^6/uL (4.20-5.40); WHITE BLOOD COUNT 6.8 x10^3/uL (4.8-10.8)
[2024-10-24 06:08] LABS: ABNORMAL LYMPHS % (MANUAL) 0 %; BAND NEUTROPHILS % (MANUAL) 0 %
[2024-10-24 06:17] LABS: CALCIUM 9.3 mg/dL (8.5-10.3); CREATININE 0.8 mg/dL (0.6-1.3); MAGNESIUM 1.9 mg/dL (1.7-2.3); POTASSIUM 3.5 mmol/L (3.5-4.5)
[2024-10-24 06:33] LABS: LYMPHOCYTES % (MANUAL) 30 %; MONOCYTES # (MANUAL) 0.5 10^3/uL (0.0-1.0); NEUTROPHILS # (MANUAL) 4.2 10^3/uL (1.5-6.6)
[2024-10-24 06:34] LABS: DIFFERENTIAL COMMENT MANUAL DIFFERENTIAL; PLATELET ESTIMATE, MANUAL NORMAL (130-450,000) (NORMAL); PLATELET MORPHOLOGY NORMAL APPEARANCE (NORMAL); RBC MORPHOLOGY (MULTIPLE) NORMAL APPEARANCE (NORMAL); WBC MORPHOLOGY (MULTIPLE) NORMAL APPEARANCE (NORMAL)
[2024-10-24] MEDS ORDERED: predniSONE 20 MG TABLET PO SCH (08:00)
[2024-10-24] MEDS: predniSONE 20 MG TABLET PO SCH (08:08)
[2024-10-24] MEDS: BENZOCAINE/MENTHOL LOZENGE MM PRN (11:54)
[2024-10-24] MEDS: guaiFENesin/DEXTROMETHORPHAN 10 ML UDC PO SCH (11:54)
--- NOTE | 2024-10-24 14:32 | PROVIDER PROGRESS NOTE ---
Subjective Subjective Subjective: Patient states that she started feeling short of breath on 10/19. Initially, she went to urgent care. Urgent care notes were reviewedshe first went on 10/19 for cough and congestion, postnasal drip, sinus congestion. At this time, chest x- ray was done which showed no obvious pneumonia. Her viral swab was positive for RSV. She was advised symptomatic treatment. She then returned on 10/21 for worsening fever, fatigue, severe cough with phlegm production. Chest x-ray was done again, with no obvious infiltrate seen. At this time, she was prescribed an albuterol inhaler for symptomatic treatment. Patient does not have a history of known COPD. However, she did smoke for about 20 years, and quit in 1972. She has never had pulmonary function testing done. When she arrived, she had no leukocytosis. RSV on viral swab was once again positive. Chest x-ray was repeated here, and it showed hyperinflation suggesting COPD or chronic emphysema. It also showed mild cardiomegaly. She was requiring 2 L of oxygen, although there is no documented hypoxia. Of note, her last ECHO was in 06/08; at this time, it was noted that she her left systolic function was normal with EF of 60 to 65%. And she had mild aortic stenosis. Diastolic dysfunction cannot be determined. She does have a history of atrial fibrillation, and is on Plavix for presumed CAD. She is not on any blood thinners. She lives alone and does not use any ambulatory devices - concerned about going home, PT/OT eval ordered. Current Medications Current Medications Current Medications: Current Medications Generic Name Dose Route Start Last Admin Trade Name Freq PRN Reason Stop Dose Admin Acetaminophen 650 mg 10/22/24 22:44 Acetaminophen 325 Mg Tablet PO Q4HR PRN Pain 1 to 4, or Fever Albuterol/Ipratropium 3 ml 10/22/24 22:49 10/24/24 10:51 Ipratropium/Albuterol 3 Ml Neb INH 3 ml Q2HR PRN Administration Wheezing Benzonatate 100 mg 10/22/24 22:50 10/24/24 06:30 Benzonatate 100 Mg Capsule PO 100 mg Q8H PRN Administration Cough Budesonide 0.5 mg 10/23/24 07:00 10/24/24 07:07 Budesonide 0.5 Mg/2 Ml Neb INH 0.5 mg RTBID FAIZAN Administration Cholecalciferol 5,000 unit 10/23/24 09:00 10/24/24 08:08 Cholecalciferol 5,000 Unit Capsule PO 5,000 unit DAILY FAIZAN Administration Clopidogrel Bisulfate 75 mg 10/23/24 09:00 10/24/24 08:08 Clopidogrel 75 Mg Tablet PO 75 mg DAILY FAIZAN Administration Guaifenesin 600 mg 10/23/24 09:00 10/24/24 08:08 Guaifenesin 600 Mg Tablet PO 600 mg DAILY FAIZAN Administration Guaifenesin 10 ml 10/24/24 12:00 10/24/24 11:54 Guaifenesin/Dextromethorphan 10 Ml Udc PO 10 ml Q6HR FAIZAN Administration Metoprolol Succinate 200 mg 10/23/24 09:00 10/24/24 08:08 Metoprolol Succinate 50 Mg Tablet PO 200 mg DAILY FAIZAN Administration Ondansetron HCl 4 mg 10/22/24 22:44 Ondansetron Odt 4 Mg Tablet TL Q6HR PRN Nausea / Vomiting Ondansetron HCl 4 mg 10/22/24 22:44 Ondansetron 4 Mg/2 Ml Vial IVP Q6HR PRN Nausea / Vomiting Pantoprazole Sodium 40 mg 10/23/24 07:00 10/24/24 06:30 Pantoprazole 40 Mg Tablet PO 40 mg QDAC FAIZAN Administration Halobetasol 1 each 10/23/24 07:05 Propionate 0.05 % TOP Ointment BID PRN dermatitis Pravastatin Sodium 40 mg 10/23/24 21:00 10/23/24 20:57 Pravastatin 40 Mg Tablet PO 40 mg HS FAIZAN Administration Prednisone 40 mg 10/24/24 08:00 10/24/24 08:08 Prednisone 20 Mg Tablet PO 40 mg DAILYWM FAIZAN Administration Sodium Chloride 10 ml 10/22/24 22:44 Sodium Chloride Flush 0.9% 10 Ml Syringe IVP PRN PRN NEEDED PER PROVIDER ORDERS Throat Lozenges 1 lozenge 10/24/24 11:33 10/24/24 11:54 Benzocaine/Menthol Lozenge MM 1 lozenge Q2HR PRN Administration Mouth Sore Pain Objective Vital Signs/Intake & Output Reviewed Vital Signs: Yes Vital Signs: Vital Signs x48h Temp Pulse Pulse Resp BP Pulse Ox O2 Flow Rate 10/24/24 10:51 78 22 10/24/24 08:22 98.2 F 103 H 22 140/84 H 93 1 10/24/24 07:08 2 10/24/24 07:08 118 H 24 Intake & Output: Intake & Output 10/21/24 10/22/24 10/23/24 10/24/24 23:59 23:59 23:59 23:59 Intake Total 1580 / 1580 740 / 740 Balance 1580 / 1580 740 / 740 Weight (kg) 88 kg 83.5 kg Objective General Appearance: positive No acute distress and Alert Eyes Bilateral: positive Normal inspection and PERRL ENT: positive ENT inspection nml, Pharynx nml and No signs of dehydration Neck: positive Nml inspection, Thyroid nml and No JVD Respiratory: positive Chest non-tender, No respiratory distress and Wheezes (diffuse expiratory wheezes noted) Cardiovascular: positive No murmur, No gallop and Irregularly irregular; negative Tachycardia or Bradycardia Abdomen: positive Non-tender; negative Tenderness, Guarding, Rebound, Hepatomegaly or Splenomegaly Back: negative Nml inspection, CVA tenderness (R) or CVA tenderness (L) Skin: positive Color nml, No rash, Warm and Dry Extremities: positive Non-tender, Full ROM and No pedal edema Neurologic/Psychiatric: positive Oriented x3 and Mood/affect nml Lab Results 10/24/24 05:55 10/24/24 05:55 Other Labs: Lab Results x24hrs 10/24/24 Range/Units 05:55 WBC 6.8 (4.8-10.8) x10^3/uL RBC 4.52 (4.20-5.40) 10^6/uL Hgb 14.7 (12.0-16.0) g/dL Hct 45.8 (37.0-47.0) % MCV 101.3 H (81.0-99.0) fL MCH 32.5 H (27.0-31.0) pg MCHC 32.1 (32.0-36.0) g/dL RDW 13.0 (12.0-15.0) % Plt Count 183 (130-450) 10^3/uL MPV 10.2 (7.9-10.8) fL Neut # (Auto) Not Reportable Lymph # (Auto) Not Reportable [place] # (Auto) Not Reportable Eos # (Auto) Not Reportable Baso # (Auto) Not Reportable Absolute Nucleated RBC Not Reportable Total Counted 100 Band Neuts % (Manual) 0 (0 - 10) % Abnorm Lymph % (Manual) 0 % Nucleated RBC % Not Reportable Neutrophils # (Manual) 4.2 (1.5-6.6) 10^3/uL Lymphocytes # (Manual) 2.0 (1.5-3.5) 10^3/uL Monocytes # (Manual) 0.5 (0.0-1.0) 10^3/uL Eosinophils # (Manual) 0.0 (0-0.7) 10^3/uL Basophils # (Manual) 0.0 (0-0.1) 10^3/uL Differential Comment MANUAL DIFFERENTIAL WBC Morphology NORMAL APPEARANCE (NORMAL) Platelet Estimate NORMAL (130-450,000) (NORMAL) Platelet Morphology NORMAL APPEARANCE (NORMAL) RBC Morph Micro Appear NORMAL APPEARANCE (NORMAL) Sodium 139 (135-145) mmol/L Potassium 3.5 (3.5-4.5) mmol/L Chloride 100 L (101-111) mmol/L Carbon Dioxide 34 H (21-32) mmol/L Anion Gap 5.0 L (6-13) BUN 23 H (6-20) mg/dL Creatinine 0.8 (0.6-1.3) mg/dL Estimated GFR (MDRD) 68 L (>89) Glucose 126 H (74-104) mg/dL Calcium 9.3 (8.5-10.3) mg/dL Magnesium 1.9 (1.7-2.3) mg/dL Diagnostic Imaging Diagnostic Imaging Results: positive Final report reviewed Assessment/Plan Problem List (1) Acute hypoxic respiratory failure: Impression: Patient presented with dyspnea, cough, subjective fevers and chills. Was placed on 2 L nasal cannula. Has had RSV since 10/19. Has been to urgent care few times in the last few days with no pneumonia noted on chest x-ray done 09/18, 09/20, and 09/21. Chest x-ray does look hyperinflated. Wheezing on exam is noted. Patient has a former history of smoking, quit in 1972. Has never had PFTs done. Received Solu-Medrol IV on admission. Transition to oral prednisone today. Continue supportive treatment with Robitussin, incentive spirometry. Wean oxygen as tolerated. Will do ambulatory pulse oximetry test prior to discharge. (2) COPD exacerbation: Impression: Patient does have a former smoking history, and chest x-ray has findings indicative of possible COPD. Will likely need PFT testing in the outpatient setting. The meantime, we will continue prednisone while here. Will also continue DuoNebs every 4 hours as needed. (3) Respiratory syncytial virus (RSV): Impression: Supportive treatment as outlined above. Qualifiers: RSV infection type: unspecified Qualified Code(s): B33.8 - Other specified viral diseases (4) Paroxysmal atrial fibrillation: Impression: Patient did have an episode of rapid ventricular response while in the emergency room. She required 2 doses of 5 mg of metoprolol. She is now back on her home dose of metoprolol succinate 200 mg daily without any further episodes of rapid ventricular response. Patient is not in any anticoagulation. She does take Plavix for CAD though.
--- NOTE | 2024-10-24 16:03 | OT Plan of Care ---
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 Was placed on 2 L nasal cannula. + RSV. Treated with Robitussin, incentive spirometry. Wean O2 as tolerated. Pt met sitting in chair, A&Ox4, willing to participate with therapy. Performed sit to stand, ambulation, and ADLs indp Trialed on RA with mobility; Spo2 90% with recovery to 94% with sitting rest break. Placed back on 1 L NC for support. RN updated. No further skilled OT needed at acute level of care. Cont. mobility with nursing prn. OT Inpatient Plan PLAN Treatment Frequency: Evaluation only, no further O.T. -Discharge Recommendations Discharge Location: Previous Living Situation Support/Services Needed: No needs Transport Needs at Discharge: Personal vehicle
--- NOTE | 2024-10-24 16:12 | PT Plan of Care ---
Medical/Surgical Past History Past History Medical History (Updated 10/23/24 @ 14:54 by Lillian Olson MD) HTN (hypertension)
[2024-10-24] MEDS: SODIUM CHLORIDE FLUSH 0.9% 10 ML SYRINGE IVP PRN (16:14)
[2024-10-25 05:59] LABS: BASOPHILS % (AUTO) 0.4 %; EOSINOPHILS % (AUTO) 0.1 %; HCT - HEMATOCRIT 42.9 % (37.0-47.0); HGB - HEMOGLOBIN 14.2 g/dL (12.0-16.0); MEAN CORPUSCULAR HEMOGLOBIN 33.6 pg (27.0-31.0); MEAN CORPUSCULAR HGB CONC 33.1 g/dL (32.0-36.0); MEAN CORPUSCULAR VOLUME 101.4 fL (81.0-99.0); MEAN PLATELET VOLUME 10.6 fL (7.9-10.8); MONOCYTES % (AUTO) 10.2 %; NEUTROPHILS % (AUTO) 62.9 %; PLT - PLATELET COUNT 188 10^3/uL (130-450); RED BLOOD COUNT 4.23 10^6/uL (4.20-5.40); RED CELL DISTRIBUTION WIDTH 13.1 % (12.0-15.0); WHITE BLOOD COUNT 8.3 x10^3/uL (4.8-10.8)
[2024-10-25 06:06] LABS: ABNORMAL LYMPHS % (MANUAL) 0 %
[2024-10-25 06:13] LABS: CALCIUM 9.2 mg/dL (8.5-10.3); CREATININE 0.9 mg/dL (0.6-1.3); MAGNESIUM 1.9 mg/dL (1.7-2.3); POTASSIUM 3.3 mmol/L (3.5-4.5)
[2024-10-25 06:27] LABS: BAND NEUTROPHILS % (MANUAL) 2 %; LYMPHOCYTES # (MANUAL) 1.7 10^3/uL (1.5-3.5); LYMPHOCYTES % (MANUAL) 21 %; MONOCYTES # (MANUAL) 0.2 10^3/uL (0.0-1.0); NEUTROPHILS # (MANUAL) 6.4 10^3/uL (1.5-6.6)
[2024-10-25 06:28] LABS: DIFFERENTIAL COMMENT MANUAL DIFFERENTIAL; PLATELET ESTIMATE, MANUAL NORMAL (130-450,000) (NORMAL); PLATELET MORPHOLOGY NORMAL APPEARANCE (NORMAL); RBC MORPHOLOGY (MULTIPLE) NORMAL APPEARANCE (NORMAL); WBC MORPHOLOGY (MULTIPLE) NORMAL APPEARANCE (NORMAL)
--- NOTE | 2024-10-25 14:22 | PROVIDER PROGRESS NOTE ---
Subjective Prog Note Date Prog Note Date: 10/25/24 Prog Note Time: 14:21 Subjective Pt reports feeling: Improved Subjective: She is definitely feeling better. Better appetite. She is able to get up and go to the bathroom. And in fact wants the bed alarm discontinued. But, when she worked with physical therapy, her O2 sats dropped to 90% and she becomes quite tachycardic and tachypneic. She recovers quickly. Off and on she is requiring 1 L nasal cannula to maintain her O2 sats above 88 to 89%. She has a constant dry cough with a tickle in her throat that is very annoying. She denies chest pain, abdominal pain, and other than the cough is comfortable. Current Medications Current Medications Current Medications: Current Medications Generic Name Dose Route Start Last Admin Trade Name Freq PRN Reason Stop Dose Admin Acetaminophen 650 mg 10/22/24 22:44 Acetaminophen 325 Mg Tablet PO Q4HR PRN Pain 1 to 4, or Fever Albuterol/Ipratropium 3 ml 10/22/24 22:49 10/25/24 07:12 Ipratropium/Albuterol 3 Ml Neb INH 3 ml Q2HR PRN Administration Wheezing Benzonatate 100 mg 10/22/24 22:50 10/24/24 16:15 Benzonatate 100 Mg Capsule PO 100 mg Q8H PRN Administration Cough Budesonide 0.5 mg 10/23/24 07:00 10/25/24 07:12 Budesonide 0.5 Mg/2 Ml Neb INH 0.5 mg RTBID FAIZAN Administration Cholecalciferol 5,000 unit 10/23/24 09:00 10/25/24 08:06 Cholecalciferol 5,000 Unit Capsule PO 5,000 unit DAILY FAIZAN Administration Clopidogrel Bisulfate 75 mg 10/23/24 09:00 10/25/24 08:06 Clopidogrel 75 Mg Tablet PO 75 mg DAILY FAIZAN Administration Guaifenesin 600 mg 10/23/24 09:00 10/25/24 08:06 Guaifenesin 600 Mg Tablet PO 600 mg DAILY FAIZAN Administration Guaifenesin 10 ml 10/24/24 12:00 10/25/24 11:53 Guaifenesin/Dextromethorphan 10 Ml Udc PO 10 ml Q6HR FAIZAN Administration Metoprolol Succinate 200 mg 10/23/24 09:00 10/25/24 08:06 Metoprolol Succinate 50 Mg Tablet PO 200 mg DAILY FAIZAN Administration Ondansetron HCl 4 mg 10/22/24 22:44 Ondansetron Odt 4 Mg Tablet TL Q6HR PRN Nausea / Vomiting Ondansetron HCl 4 mg 10/22/24 22:44 Ondansetron 4 Mg/2 Ml Vial IVP Q6HR PRN Nausea / Vomiting Pantoprazole Sodium 40 mg 10/23/24 07:00 10/25/24 06:51 Pantoprazole 40 Mg Tablet PO 40 mg QDAC FAIZAN Administration Halobetasol 1 each 10/23/24 07:05 Propionate 0.05 % TOP Ointment BID PRN dermatitis Pravastatin Sodium 40 mg 10/23/24 21:00 10/24/24 20:56 Pravastatin 40 Mg Tablet PO 40 mg HS FAIZAN Administration Prednisone 40 mg 10/24/24 08:00 10/25/24 08:06 Prednisone 20 Mg Tablet PO 40 mg DAILYWM FAIZAN Administration Sodium Chloride 10 ml 10/22/24 22:44 10/24/24 16:14 Sodium Chloride Flush 0.9% 10 Ml Syringe IVP 10 ml PRN PRN Administration NEEDED PER PROVIDER ORDERS Throat Lozenges 1 lozenge 10/24/24 11:33 10/25/24 00:11 Benzocaine/Menthol Lozenge MM 1 lozenge Q2HR PRN Administration Mouth Sore Pain Objective Vital Signs/Intake & Output Reviewed Vital Signs: Yes Vital Signs: Vital Signs x48h Temp Pulse Pulse Resp BP Pulse Ox O2 Flow Rate 10/25/24 08:12 36.5 C 84 20 151/90 H 97 1 10/25/24 07:15 1 10/25/24 07:13 94 22 1 Intake & Output: Intake & Output 10/22/24 10/23/24 10/24/24 10/25/24 23:59 23:59 23:59 23:59 Intake Total 1580 / 1580 1378 / 1378 240 / 240 Balance 1580 / 1580 1378 / 1378 240 / 240 Weight (kg) 88 kg 83.5 kg Objective General Appearance: positive No acute distress (Sitting up in bed. Has her iPad and hand as she reads. Appears quite comfortable. Except for the cough.) and Alert (Elderly female. 5 foot 7 inches tall, 83.5 kg.) Eyes Bilateral: positive PERRL ENT: positive No signs of dehydration Neck: positive Thyroid nml and No JVD Respiratory: positive Chest non-tender, Rales (Left midlung crackles) and Other (Comfortable. No tachypnea. No use of accessory muscles when she speaks to me.); negative Breath sounds nml (Markedly diminished at bases.), Wheezes or Rhonchi Cardiovascular: positive Regular rate & rhythm Abdomen: positive Non-tender and Nml bowel sounds Skin: positive Warm and Dry Extremities: positive Non-tender and Full ROM Neurologic/Psychiatric: positive Oriented x3, CN's nml (2-12) and Motor nml Lab Results 10/25/24 05:39 10/25/24 05:39 Other Labs: Lab Results x24hrs 10/25/24 Range/Units 05:39 WBC 8.3 (4.8-10.8) x10^3/uL RBC 4.23 (4.20-5.40) 10^6/uL Hgb 14.2 (12.0-16.0) g/dL Hct 42.9 (37.0-47.0) % MCV 101.4 H (81.0-99.0) fL MCH 33.6 H (27.0-31.0) pg MCHC 33.1 (32.0-36.0) g/dL RDW 13.1 (12.0-15.0) % Plt Count 188 (130-450) 10^3/uL MPV 10.6 (7.9-10.8) fL Neut # (Auto) Not Reportable Lymph # (Auto) Not Reportable Mason # (Auto) Not Reportable Eos # (Auto) Not Reportable Baso # (Auto) Not Reportable Absolute Nucleated RBC Not Reportable Total Counted 100 Band Neuts % (Manual) 2 (0 - 10) % Abnorm Lymph % (Manual) 0 % Nucleated RBC % Not Reportable Neutrophils # (Manual) 6.4 (1.5-6.6) 10^3/uL Lymphocytes # (Manual) 1.7 (1.5-3.5) 10^3/uL Monocytes # (Manual) 0.2 (0.0-1.0) 10^3/uL Eosinophils # (Manual) 0.0 (0-0.7) 10^3/uL Basophils # (Manual) 0.0 (0-0.1) 10^3/uL Differential Comment MANUAL DIFFERENTIAL WBC Morphology NORMAL APPEARANCE (NORMAL) Platelet Estimate NORMAL (130-450,000) (NORMAL) Platelet Morphology NORMAL APPEARANCE (NORMAL) RBC Morph Micro Appear NORMAL APPEARANCE (NORMAL) Sodium 139 (135-145) mmol/L Potassium 3.3 L (3.5-4.5) mmol/L Chloride 99 L (101-111) mmol/L Carbon Dioxide 33 H (21-32) mmol/L Anion Gap 7.0 (6-13) BUN 27 H (6-20) mg/dL Creatinine 0.9 (0.6-1.3) mg/dL Estimated GFR (MDRD) 59 L (>89) Glucose 110 H (74-104) mg/dL Calcium 9.2 (8.5-10.3) mg/dL Magnesium 1.9 (1.7-2.3) mg/dL Assessment/Plan Problem List (1) Acute hypoxic respiratory failure: Impression: Due to RSV infection. Treatment has been DuoNeb, Tessalon, budesonide inhalation, guaifenesin pills, and guaifenesin with dextromethorphan liquid. She is now hospital day #4. She has definitely improved with appetite, ambulation and independence. But still requires 1 L nasal cannula. Plan: Stop bed alarm Discharge will be when she is no longer on oxygen. She was offered the option of going home on oxygen and has declined that opportunity (2) COPD exacerbation: Impression: No wheezing on lung exam today. Is comfortable from a respiratory status. The only thing that is annoying her is the cough. No change in the management as stated in problem #1 (3) Respiratory syncytial virus (RSV): Impression: Treatment is supportive. Antibiotics are not indicated. Patient is improving. I did warn her that she should still consider herself contagious and when she goes home to avoid going out in public for another few days. Qualifiers: RSV infection type: acute bronchiolitis Qualified Code(s): J21.0 - Acute bronchiolitis due to respiratory syncytial virus (4) Paroxysmal atrial fibrillation: Impression: Today's exam is a regular rate and rhythm. In reviewing her pulse rate she was 104 last night. 118 yesterday morning. But is otherwise controlled. When she was first admitted she was consistently above 100 but has been stable over the last 2 days. At home she is on metoprolol succinate 200 mg daily. She is getting that same medication here. No change in management
[2024-10-25] MEDS: guaiFENesin/CODEINE 5 ML UDC PO PRN (21:35)
[2024-10-26 10:01] VITALS: BP 107/82; TEMP 97.5; O2SAT 95
--- NOTE | 2024-10-27 07:13 | Discharge Summary ---
Discharge Summary Admit Date: 10/22/24 Discharge Date: 10/26/24 Discharging Provider: Barbie Billy MD Primary Care Provider: Nav Caldwell MD Code Status: Attempt Resuscitation DIAGNOSES Discharge Diagnoses with Status of Each Condition: 1. Acute respiratory failure with hypoxia secondary to #2 and #3 2. RSV infection 3. COPD exacerbation 4. Paroxysmal atrial fibrillation ALLERGIES Allergies Allergy/AdvReac Type Severity Reaction Status Date / Time Penicillins Allergy Unknown Unknown Verified 10/22/24 19:28 flecainide Allergy Dizziness Verified 10/22/24 19:28 MEDICATIONS Ambulatory Orders Medication Instructions Recorded Confirmed cholecalciferol (vitamin D3) 125 5,000 unit PO DAILY 12/08/13 10/22/24 mcg (5,000 unit) tablet pravastatin 40 mg tablet 40 mg PO HS 12/08/13 10/22/24 chlorthalidone 25 mg tablet 25 mg PO DAILY 07/11/21 10/22/24 clopidogrel 75 mg tablet 75 mg PO DAILY 10/22/24 10/22/24 halobetasol propionate 0.05 % 1 applic topical BID PRN dermatitis 10/22/24 10/22/24 topical ointment metoprolol succinate 200 mg 200 mg PO DAILY 10/22/24 10/22/24 tablet,extended release 24 hr acetaminophen 325 mg tablet 650 mg (2 x 325 mg) PO Q4HR PRN 10/26/24 Pain 1 to 4, or Fever #1 tab albuterol sulfate 90 mcg/actuation 1 inh inhalation QID PRN shortness 10/26/24 aerosol inhaler (Ventolin HFA) of breath or wheezing #6.7 grams benzocaine 15 mg-menthol 3.6 mg 1 terrie mucous membrane Q2HR PRN 10/26/24 lozenges (Cepacol Sore Throat Mouth Sore Pain #16 ea (benzocaine-menthol)) codeine 10 mg-guaifenesin 100 mg/5 5 ml PO Q6HR PRN Cough #118 mL 10/26/24 mL oral liquid guaifenesin 600 mg tablet, 600 mg PO DAILY #14 tabs 10/26/24 extended release 12 hr (Mucinex) LABS 10/25/24 05:39 10/25/24 05:39 TIME SPENT Time Spent in Discharge (Minutes): 35 Discharge Plan Discharge Patient Disposition: 01 Home, Self Care Condition: Poor Medically Cleared Date:: 10/26/24 Prescriptions: New acetaminophen 325 mg Tablet 650 mg PO Q4HR PRN (Reason: Pain 1 to 4, or Fever) Qty: 1 0RF Cepacol Sore Throat (artemio-men) 15-3.6 mg Lozenge 1 terrie mucous membrane Q2HR PRN (Reason: Mouth Sore Pain) Qty: 16 0RF guaifenesin [Mucinex] 600 mg Tablet Extended Release 12hr 600 mg PO DAILY Qty: 14 0RF codeine-guaifenesin 10-100 mg/5 mL Liquid 5 ml PO Q6HR PRN (Reason: Cough) Qty: 118 0RF albuterol sulfate [Ventolin HFA] 90 mcg/actuation HFA aerosol inhaler 1 inh inhalation QID PRN (Reason: shortness of breath or wheezing) Qty: 6.7 0RF Continued pravastatin 40 MG tablet 40 mg PO HS cholecalciferol (vitamin D3) 5,000 UNIT tablet 5,000 unit PO DAILY chlorthalidone 25 MG tablet 25 mg PO DAILY metoprolol succinate 200 mg tablet extended release 24 hr 200 mg PO DAILY clopidogrel 75 mg tablet 75 mg PO DAILY Patient Comments: TAKE 1 TABLET BY MOUTH DAILY halobetasol propionate 0.05 % ointment 1 applic TOPICAL BID PRN (Reason: dermatitis) Discontinued albuterol sulfate [Ventolin HFA] 90 mcg/actuation HFA aerosol inhaler See Rx Instructions inhalation 6XD Qty: 8.5 0RF Rx Instructions: 1-2 puffs inhaled every 4 hours as needed for cough and wheezing. Activity Restrictions: Activity as Tolerated Diet: Regular Health Concerns: You presented to our emergency room, brought in by ambulance, because you been having severe shortness of breath in the context of RSV infection. He had had symptoms that began on October 14 and he was seen at the walk-in clinic after that. You were diagnosed with RSV. You are prescribed an inhaler but were unable to pick it up. When you came to our emergency room your oxygen saturation was 88%. Normal oxygen saturation on room air for a normal person is 98 to 100%. There is no true treatment for RSV. It is strictly supportive. We gave you oxygen, steroids, cough medicine. You still have quite a bit of coughing but your oxygen level is now normal on room air. Instructions for discharge: 1. Please see your primary care provider in follow-up in the next 2 weeks. 2. Although you had the albuterol inhaler called into [facility], you cannot pick it up there so I have called into [facility] since you would prefer to go through the drive-through 3. I have also called in Robitussin AC which is a cough medicine with a little bit of codeine. I would recommend you take that at night to be able to go to sleep. It can also cause constipation so eat prunes and drink plenty of water. 4. The cough can last up to a month. Do not get alarmed. However if your coughing is so severe you cannot breathe or you are coughing up blood you need to come back to the emergency room. 5. I have also called in Harry Jimenez for coughing. You can take those during the day. Your insurance plan may not pay for those. So if you opt not to take them that is okay. This was strictly a symptomatic measure, not truly a defined medical need. Print Language: Chilean Patient Instructions: Bronchiolitis, Virus Respiratory Syncytial Follow-up Care: ARAMIS CALDWELL MD [Primary Care Provider] -
== END 2024-10-26 11:13 | disposition home or self-care (01) | DRG 189 ==
LOC: ED 19:18 → MS2 23:01
PROVIDERS: ADMIT Internal Medicine; ATTEND Internal Medicine
DX: R73.9 Hyperglycemia, unspecified; B97.4 Respiratory syncytial virus as the cause of diseases classified elsewhere; E78.5 Hyperlipidemia, unspecified; J44.0 Chronic obstructive pulmonary disease with (acute) lower respiratory infection; J96.01 Acute respiratory failure with hypoxia; Z79.02 Long term (current) use of antithrombotics/antiplatelets; R00.0 Tachycardia, unspecified; J06.9 Acute upper respiratory infection, unspecified; I48.91 Unspecified atrial fibrillation; E87.1 Hypo-osmolality and hyponatremia; J44.1 Chronic obstructive pulmonary disease with (acute) exacerbation; Z87.891 Personal history of nicotine dependence; D75.89 Other specified diseases of blood and blood-forming organs; J21.0 Acute bronchiolitis due to respiratory syncytial virus; J96.02 Acute respiratory failure with hypercapnia; I10 Essential (primary) hypertension; K27.9 Peptic ulcer, site unspecified, unspecified as acute or chronic, without hemorrhage or perforation; I48.0 Paroxysmal atrial fibrillation; I11.9 Hypertensive heart disease without heart failure